=== PATIENT | female | born 1935 | race Caucasian/White ===

== ENCOUNTER 2018-11-26 10:43 | Observation (INO) ==
[2018-11-26 11:50] LABS: Hematocrit 26.7 % (37.0-47.0); Mean Cell Volume 90.8 fl (78-100); Mean Corpuscular Hemoglobin 26.5 pg (27-31); Mean Corpuscular Hgb Conc 29.2 g/dl (32-36); Mean Platelet Volume 11.3 fl (8-12.5); Neutrophil # 7.5 K/mm3 (1.3-6.0); Neutrophil % 83.1 % (42-75.0); Platelet Count 417 K/mm3 (150-450); Red Blood Count 2.94 M/mm3 (4.2-5.4); Red Cell Distribution Width 15.9 % (11.5-14.0); White Blood Count 9.1 K/mm3 (4.0-10.5)
[2018-11-26 11:55] LABS: Hemoglobin 7.8 gm/dL (12.5-16.0)
[2018-11-26 12:09] LABS: ALT 13 U/L (19-67); AST 16 U/L (0-48); Albumin * 3.4 gm/dl (3.4-5.0); Alkaline Phosphatase * 116 U/L (50-170); Anion Gap 16.3 mmol/L (6.8-13.8); BUN/Creatinine Ratio 33.8 (9.0-21.6); Bilirubin, Total 0.5 mg/dL (0.0-1.1); Blood Urea Nitrogen 27 mg/dL (3-23); Ca. Corrected For Albumin 9.3 mg/dL (8.4-10.2); Calcium * 9.1 mg/dL (7.9-10.9); Carbon Dioxide 24.2 mmol/L (24-32.6); Chloride 104 mmol/L (97-106); Glucose * 108 mg/dL (70-110); Potassium 4.5 mmol/L (3.4-4.6); Sodium 140 mmol/L (132-142); Troponin I Less than 0.017 ng/mL (0.00-0.10)
[2018-11-26] MEDS ORDERED: FUROSEMIDE 10 MG/ML VIAL IV ONE (13:36)
--- NOTE | 2018-11-26 13:43 | ERNOTE ---
Dyspnea - Date Date of Service: 11/26/18 - General Presenting Symptoms: shortness of breath Time Seen by Provider: 11/26/18 11:25 Source: patient Exam Limitations: other - Immun/Allergies/Home Medications Immunizations: IMMUNIZATION HX Immunizations Up to Date Yes History of Influenza Vaccine Yes Hx Pneumococcal Vaccination Yes Allergies/Adverse Reactions: Allergies bupropion HCl [From Wellbutrin] Allergy (Verified 11/26/18 11:09) Penicillins Allergy (Verified 11/26/18 11:09) Home Medications: HOME MEDICATIONS Aspirin [Aspirin Enteric Coated] 81 mg PO DAILY 10/06/13 [Last Taken 10/06/13 08:00 81 MG] Atorvastatin Calcium 10 mg PO DAILY 10/06/13 [Last Taken 10/05/13 21:00 10 mg] Cholecalciferol (Vitamin D3) [Vitamin D3] 400 unit PO DAILY 10/06/13 [Last Taken 10/06/13 08:00 400 unit] Citalopram Hydrobromide [Celexa] 20 mg PO DAILY 10/06/13 [Last Taken 10/06/13 08:00 20 mg] Folic Acid 1 mg PO DAILY 10/06/13 [Last Taken 10/06/13 08:00 1 mg] Multivitamin [Multi-Vitamin Daily] 2 each PO DAILY 10/06/13 [Last Taken 10/06/13 08:00 2 each] Potassium Chloride 20 meq PO BID 10/06/13 [Last Taken 10/06/13 08:00 20 mEq] Digoxin [Digitek] 0.125 mcg PO DAILY 01/20/16 [Last Taken Unknown] Furosemide [Lasix] 40 mg PO DAILY 08/20/17 [Last Taken Unknown] Metoprolol Tartrate [Lopressor] 25 mg PO BID 08/20/17 [Last Taken Unknown] Diltiazem HCl [Diltiazem 24Hr ER] 120 mg PO DAILY 11/26/18 [Last Taken Unknown] Tiotropium [place] [Spiriva] 1 cap INHALATION DAILY PRN 11/26/18 [Last Taken Unknown] - History of Present Illness Narrative: Patient presents to the ED with increased SOB and upper back pain. The back pain is now resolved. She is not very happy to be here so it is difficult to get her to answer historical questions. She had upper back pain earlier, nothing now. SOB, unclear onset but worsening. She normally only wears oxygen at night but was in the mid 80s here on [place] so placed on oxygen. No fever. no cough. Mild leg swelling. Has not seen anyone else for this. Severity: moderate Treatment ROLLER SETTER: none Initiating event: Reports: unknown Frequency of episodes: Reports: occassional episodes Modifying Factors - (Improves): Reports: oxygen Modifying Factors (Worsens): Reports: activity Associated Symptoms-Dyspnea: Denies: fever/chills, chest pain/discomfort, cough, wheezing Prior Treatment: Denies: recently seen Review of Systems - Review of Systems Constitutional: Absent: fever Respiratory: Present: shortness of breath Cardiology: Absent: chest pain Gastrointestinal/Abdominal: Absent: abdominal pain Genitourinary: Absent: frequency Musculoskeletal: Present: other - upper back pain earlier, now resolved All Other Systems: All systems neg except as marked Medical History (Updated 11/26/18 @ 13:43 by Jamar Fang MD) A-fib Depression Hypertension Surgical History: Surgical History (Updated 11/26/18 @ 11:16 by Ann Marie Dumont RN) Hx of appendectomy Hx of tonsillectomy Family History: Family History (Updated 11/26/18 @ 11:17 by Ann Marie Dumont RN) Father Myocardial infarction Social History: Preferred Language Palestinian Do you have any roman catholic or Yes cultural preference? Smoking Status Former smoker Have you smoked in the past 12 No months Alcohol Use none Drug Use none No Social History Section defined Physical Exam - Physical Exam General Appearance: Present: alert, other - sitting in bed, on oxygen Head Exam: Present: normal inspection, no evidence of injury Eye Exam: Normal inspection: bilateral, PERRL: bilateral Ears, Nose, Throat: Present: normal ENT inspection Neck: Present: normal inspection Respiratory: Present: no respiratory distress, no accessory muscle use, crackles Cardiovascular/Chest: Present: regular rate, rhythm Gastrointestinal/Abdominal: Present: normal bowel sounds, nontender, soft Back Exam: Absent: CVA tenderness (R), CVA tenderness (L) Extremity Exam: Present: pedal edema Neurological Exam: Present: alert, other - no acute unilateral focal motor or sensory deficits Skin Exam: Present: normal color, warm/dry Progress - Results and Orders Patient's Lab Results:: I have reviewed the patient's lab results. - Vital Signs Patient's Vital Signs:: I have reviewed the patient's vital signs. Vital Signs: Vital Signs 11/26/18 11:10 11/26/18 11:30 11/26/18 11:35 Temperature 36.5 C 37.4 C 36.8 C Pulse Rate 80 77 Respiratory Rate 95 H 20 Blood Pressure 102/69 115/52 O2 Sat by Pulse Oximetry 92 L 94 95 - EKG EKG #1 EKG: NSR EKG read: Interp. by me EKG Comments: A fib rate 81. Non-specific changes, no STEMI noted. - X-Ray X-Ray #1 X-Ray: chest Interpretation: Interp. by me X-ray Comments: I reviewed official radiology report - Progress/Reassessment Chief Complaint: Dyspnea Progress Note-Subjective: 11/26/18 14:13 Patient initially didn't want anything done. Afer family talked toher she agreed to blood transfusion and observation. She wishes to stay here. I discussed the case with Dr Dumont who will admit and saw the patient in the ED. Departure Clinical Impression: Symptomatic anemia, CHF (congestive heart failure), Hypoxia - Departure Disposition: Still a patient Condition: Fair
--- NOTE | 2018-11-26 14:21 | HP ---
Chief Complaint - Chief Complaint Date of Service: 11/26/18 Time of Service: 14:15 Chief Complaint: Shortness of breath History of Present Illness: Urine culture results and blood culture 83-year-old female with a past medical history of atrial fibrillation on Eliquis, depression, hypertension presents with complaints of shortness of breath x1 day. She decided to come to the emergency department and was found to have anemia with hemoglobin of 7.8 and hematocrit 26.7 chest x-ray shows findings compatible with CHF compatible superimposed on COPD. She denies any acute blood loss such as urine no blood in her stools. She will be admitted for symptomatic anemia and will get 2 units of blood. Medical History (Updated 11/26/18 @ 14:21 by Lilliana Zepeda MD) A-fib Depression Hypertension Surgical History: Surgical History (Updated 11/26/18 @ 11:16 by Ann Marie Dumont RN) Hx of appendectomy Hx of tonsillectomy Family History: Family History (Updated 11/26/18 @ 11:17 by Ann Marie Dumont RN) Father Myocardial infarction Social History: Preferred Language Zimbabwean Do you have any mormon or Yes cultural preference? Smoking Status Former smoker Have you smoked in the past 12 No months Alcohol Use none Drug Use none No Social History Section defined Review Of Systems (GEN) - Review of Systems Generalized/Overall Review: Absent: Fever Respiratory: Present: Shortness of Breath Cardiac: Absent: Chest Pain Abdominal: Absent: Abdominal Pain Misc: All systems neg except as marked Immunizations: IMMUNIZATION HX Immunizations Up to Date Yes History of Influenza Vaccine Yes Hx Pneumococcal Vaccination Yes Allergies/Adverse Reactions: Allergies Allergy/AdvReac Type Severity Reaction Status Date / Time bupropion HCl Allergy Verified 11/26/18 11:09 [From Wellbutrin] Penicillins Allergy Verified 11/26/18 11:09 Home Medications: HOME MEDICATIONS Aspirin [Aspirin Enteric Coated] 81 mg PO DAILY 10/06/13 [Last Taken 10/06/13 08:00 81 MG] Atorvastatin Calcium 10 mg PO DAILY 10/06/13 [Last Taken 10/05/13 21:00 10 mg] Cholecalciferol (Vitamin D3) [Vitamin D3] 400 unit PO DAILY 10/06/13 [Last Taken 10/06/13 08:00 400 unit] Citalopram Hydrobromide [Celexa] 20 mg PO DAILY 10/06/13 [Last Taken 10/06/13 08:00 20 mg] Folic Acid 1 mg PO DAILY 10/06/13 [Last Taken 10/06/13 08:00 1 mg] Multivitamin [Multi-Vitamin Daily] 2 each PO DAILY 10/06/13 [Last Taken 10/06/13 08:00 2 each] Potassium Chloride 20 meq PO BID 10/06/13 [Last Taken 10/06/13 08:00 20 mEq] Digoxin [Digitek] 0.125 mcg PO DAILY 01/20/16 [Last Taken Unknown] Furosemide [Lasix] 40 mg PO DAILY 08/20/17 [Last Taken Unknown] Metoprolol Tartrate [Lopressor] 25 mg PO BID 08/20/17 [Last Taken Unknown] Diltiazem HCl [Diltiazem 24Hr ER] 120 mg PO DAILY 11/26/18 [Last Taken Unknown] Tiotropium [place] [Spiriva] 1 cap INHALATION DAILY PRN 11/26/18 [Last Taken Unknown] Exam - Exam Vital Signs: Vital Signs - Last Taken Temp 36.8 C 11/26/18 11:35 Pulse 77 11/26/18 11:30 Resp 20 11/26/18 11:30 BP 115/52 11/26/18 11:30 Pulse Ox 95 11/26/18 11:35 Constitutional: Present: Alert, Cooperative, Well developed, Well nourished, No distress, Elderly ENT Exam: Present: hearing grossly normal Eye Exam: bilateral eye: normal inspection, PERRL Neck: Present: non-tender, supple, trachea midline. Absent: lymphadenopathy (R), lymphadenopathy (L) Back Exam: Present: normal inspection Respiratory: Present: no respiratory distress, no accessory muscle use, crackles - Mild bilateral bases, No wheezing. Absent: rhonchi Cardiovascular/Chest: Present: normal peripheral pulses, no murmur, irregularly irregular Peripheral Pulses: dorsalis-pedis (R): 1+, dorsalis-pedis (L): 1+ Abdomen: Present: Normal bowel sounds, soft, nontender Extremity: Present: pedal edema - 1+ bilateral Skin Exam: Present: normal color, warm/dry Neurologic: Present: alert, normal mood/affect Appearance: Present: appropriate appearance, appropriate insight Eye contact: Present: cooperative, good eye contact Thoughts: Present: normal thought pattern Diagnostic Studies: Abnormal Lab Results 11/26/18 11/26/18 11/26/18 Range/Units 11:35 11:35 11:35 RBC 2.94 L (4.2-5.4) M/mm3 Hgb 7.8 L* D (12.5-16.0) gm/dL Hct 26.7 L (37.0-47.0) % MCH 26.5 L (27-31) pg MCHC 29.2 L (32-36) g/dl RDW 15.9 H (11.5-14.0) % Immature Gran % (Auto) 0.60 H (0.001-0.429) % Immature Gran # (Auto) 0.05 H (0.000-0.0310) K/mm3 Neutrophils % 83.1 H (42-75.0) % Lymphocytes % 7.3 L (20-51) % Neutrophils # 7.5 H (1.3-6.0) K/mm3 Lymphocytes # 0.66 L (1.5-3.5) k/mm3 Anion Gap 16.3 H (6.8-13.8) mmol/L BUN 27 H (3-23) mg/dL BUN/Creatinine Ratio 33.8 H (9.0-21.6) ALT 13 L (19-67) U/L B-Natriuretic Peptide 2610 H (5-550) pg/mL Crossmatch 11/26/18 Range/Units 13:15 RBC (4.2-5.4) M/mm3 Hgb (12.5-16.0) gm/dL Hct (37.0-47.0) % MCH (27-31) pg MCHC (32-36) g/dl RDW (11.5-14.0) % Immature Gran % (Auto) (0.001-0.429) % Immature Gran # (Auto) (0.000-0.0310) K/mm3 Neutrophils % (42-75.0) % Lymphocytes % (20-51) % Neutrophils # (1.3-6.0) K/mm3 Lymphocytes # (1.5-3.5) k/mm3 Anion Gap (6.8-13.8) mmol/L BUN (3-23) mg/dL BUN/Creatinine Ratio (9.0-21.6) ALT (19-67) U/L B-Natriuretic Peptide (5-550) pg/mL Crossmatch See Detail Laboratory Results WBC 9.1 K/mm3 (4.0-10.5) 11/26/18 11:35 RBC 2.94 M/mm3 (4.2-5.4) L 11/26/18 11:35 Hgb 7.8 gm/dL (12.5-16.0) L* D 11/26/18 11:35 Hct 26.7 % (37.0-47.0) L 11/26/18 11:35 MCV 90.8 fl (78-100) 11/26/18 11:35 MCH 26.5 pg (27-31) L 11/26/18 11:35 MCHC 29.2 g/dl (32-36) L 11/26/18 11:35 RDW 15.9 % (11.5-14.0) H 11/26/18 11:35 Plt Count 417 K/mm3 (150-450) 11/26/18 11:35 MPV 11.3 fl (8-12.5) 11/26/18 11:35 Immature Gran % (Auto) 0.60 % (0.001-0.429) H 11/26/18 11:35 Immature Gran # (Auto) 0.05 K/mm3 (0.000-0.0310) H 11/26/18 11:35 83.1 % (42-75.0) H 11/26/18 11:35 7.3 % (20-51) L 11/26/18 11:35 7.8 % (0.0-9) 11/26/18 11:35 1.0 % (0.0-3.0) 11/26/18 11:35 0.2 % (0.0-1.0) 11/26/18 11:35 Nucleated RBC % 0.0 k/mm3 (0-1) 11/26/18 11:35 7.5 K/mm3 (1.3-6.0) H 11/26/18 11:35 0.66 k/mm3 (1.5-3.5) L 11/26/18 11:35 0.7 k/mm3 (0.0-1.0) 11/26/18 11:35 0.1 k/mm3 (0.0-0.7) 11/26/18 11:35 Absolute Basophils 0.0 k/mm3 (0.0-0.1) 11/26/18 11:35 Sodium 140 mmol/L (132-142) 11/26/18 11:35 140 mmol/L (130-142) 11/26/18 11:35 Potassium 4.5 mmol/L (3.4-4.6) 11/26/18 11:35 Chloride 104 mmol/L (97-106) 11/26/18 11:35 Carbon Dioxide 24.2 mmol/L (24-32.6) 11/26/18 11:35 16.3 mmol/L (6.8-13.8) H 11/26/18 11:35 BUN 27 mg/dL (3-23) H 11/26/18 11:35 0.80 mg/dL (0.4-1.4) 11/26/18 11:35 Est GFR (Non-Af Amer) 72 mL/min (60-130) 11/26/18 11:35 33.8 (9.0-21.6) H 11/26/18 11:35 108 mg/dL (70-110) 11/26/18 11:35 1.9 mmol/L (0.4-2.0) 11/26/18 11:35 Calcium 9.1 mg/dL (7.9-10.9) 11/26/18 11:35 Calcium Adj for Albumin 9.3 mg/dL (8.4-10.2) 11/26/18 11:35 0.5 mg/dL (0.0-1.1) 11/26/18 11:35 AST 16 U/L (0-48) 11/26/18 11:35 ALT 13 U/L (19-67) L 11/26/18 11:35 116 U/L (50-170) 11/26/18 11:35 Less than 0.017 ng/mL (0.00-0.10) 11/26/18 11:35 B-Natriuretic Peptide 2610 pg/mL (5-550) H 11/26/18 11:35 7.0 gm/dL (6.2-8.2) 11/26/18 11:35 3.4 gm/dl (3.4-5.0) 11/26/18 11:35 Blood Type A Positive 11/26/18 13:15 Antibody Screen Negative 11/26/18 13:15 Crossmatch See Detail 11/26/18 13:15 Assessment/Plan - Narrative Narrative: Urine culture results and blood culture 83-year-old female with a past medical history of atrial fibrillation on Eliquis, depression, hypertension presents with complaints of shortness of breath x1 day. She decided to come to the emergency department and was found to have anemia with hemoglobin of 7.8 and hematocrit 26.7 chest x-ray shows findings compatible with CHF compatible superimposed on COPD. She denies any acute blood loss such as urine no blood in her stools. She will be admitted for symptomatic anemia and will get 2 units of blood. - Assessment/Plan (1) Symptomatic anemia Assessment: She will receive 2 units of packed red blood cells today. She received 1 dose of 40 milligrams Lasix prior to the first unit of blood. Repeat CBC in the morning. No signs of active bleeding. Problem: Acute (2) Hypoxia Assessment: She uses oxygen at night at home. She is currently on oxygen due to hypoxia now. We will try to titrate her off the oxygen as tolerated. Problem: Acute (3) A-fib Assessment: Rate controlled on anticoagulation continue home meds. Problem: Chronic (4) Congestive heart failure Assessment: Findings consistent with congestive heart failure on chest x-ray. She has received 1 dose of 40 mg Lasix prior to the first transfusion. If symptomatic, we will consider giving her another dose of Lasix after the second transfusion. Problem: Acute
[2018-11-26] MEDS ORDERED: TIOTROPIUM BROMIDE 5 CAP INHALER IH PRN (14:30)
[2018-11-26] MEDS: POTASSIUM CHLORIDE 20 MEQ TABLET.SA PO SCH (16:42)
[2018-11-26] MEDS: METOPROLOL TARTRATE 25 MG TABLET PO SCH (20:10)
[2018-11-26] MEDS ORDERED: ROSUVASTATIN CALCIUM 10 MG TABLET PO SCH (21:00)
[2018-11-26] MEDS: APIXABAN 5 MG TABLET PO SCH (21:11)
[2018-11-26] MEDS ORDERED: ALPRAZolam 0.25 MG TABLET PO ONE (22:14)
[2018-11-27 01:34] LABS: Hematocrit 32.1 % (37.0-47.0); Hemoglobin 9.7 gm/dL (12.5-16.0)
[2018-11-27 06:20] LABS: Hematocrit 32.2 % (37.0-47.0); Hemoglobin 9.7 gm/dL (12.5-16.0); Mean Cell Volume 89.9 fl (78-100); Mean Corpuscular Hemoglobin 27.1 pg (27-31); Mean Corpuscular Hgb Conc 30.1 g/dl (32-36); Mean Platelet Volume 11.3 fl (8-12.5); Neutrophil # 6.1 K/mm3 (1.3-6.0); Neutrophil % 73.6 % (42-75.0); Platelet Count 374 K/mm3 (150-450); Red Blood Count 3.58 M/mm3 (4.2-5.4); Red Cell Distribution Width 15.4 % (11.5-14.0); White Blood Count 8.3 K/mm3 (4.0-10.5)
[2018-11-27 06:28] LABS: Albumin * 3.1 gm/dl (3.4-5.0); Bilirubin, Total 1.2 mg/dL (0.0-1.1); Calcium * 8.6 mg/dL (7.9-10.9); Carbon Dioxide 28.9 mmol/L (24-32.6); Potassium 3.9 mmol/L (3.4-4.6); Total Protein 6.6 gm/dL (6.2-8.2)
[2018-11-27] MEDS ORDERED: ASPIRIN 81 MG TABLET.DR PO SCH (09:00)
[2018-11-27] MEDS ORDERED: DILTIAZEM HCL 120 MG CAP.SR.24H PO SCH (09:00)
[2018-11-27] MEDS ORDERED: MULTIVITAMINS 1 CAP CAPSULE PO SCH (09:00)
[2018-11-27] MEDS ORDERED: FUROSEMIDE 40 MG TABLET PO SCH (09:00)
[2018-11-27] MEDS ORDERED: CITALOPRAM HYDROBROMIDE 20 MG TABLET PO SCH (09:00)
[2018-11-27] MEDS ORDERED: DIGOXIN 0.125 MG TABLET PO SCH (09:00)
[2018-11-27] MEDS ORDERED: CHOLECALCIFEROL 400 UNIT TABLET PO SCH (09:00)
[2018-11-27] MEDS ORDERED: FOLIC ACID 1 MG TABLET PO SCH (09:00)
[2018-11-27] MEDS: APIXABAN 5 MG TABLET PO SCH (09:20)
[2018-11-27] MEDS: POTASSIUM CHLORIDE 20 MEQ TABLET.SA PO SCH (09:21)
[2018-11-27] MEDS: METOPROLOL TARTRATE 25 MG TABLET PO SCH (09:25)
--- NOTE | 2018-11-27 12:33 | DS ---
(1) Symptomatic anemia Problem: Resolved (2) Hypoxia Problem: Resolved (3) A-fib Problem: Chronic (4) Congestive heart failure Problem: Chronic Description of Stay: 83-year-old female with a past medical history of atrial fibrillation on Eliquis, depression, hypertension presents with complaints of shortness of breath x1 day. She decided to come to the emergency department and was found to have anemia with hemoglobin of 7.8 and hematocrit 26.7 chest x-ray shows findings compatible with CHF compatible superimposed on COPD. She denies any acute blood loss such as urine no blood in her stools. She was admitted for symptomatic anemia and is status post 2 units of blood. She had no signs of active bleeding and maintain her H&H at 9.7/32.2. She feels better this morning and is ready to go home. She received 40 mg IV Lasix x1 before her blood transfusion. She denies any history of congestive heart failure but is on Lasix at home daily. Procedures Performed: none Results and Findings: Pending Mircobiology Results 11/26/18 11:51 Blood Blood Culture - Preliminary NO GROWTH 24 HOURS 11/26/18 11:35 Blood Blood Culture - Preliminary NO GROWTH 24 HOURS Lab Pending Results 11/26/18 11:35: WBC 9.1, RBC 2.94 L, Hgb 7.8 L* D, Hct 26.7 L, MCV 90.8, MCH 26.5 L, MCHC 29.2 L, RDW 15.9 H, Plt Count 417, MPV 11.3, Immature Gran % (Auto) 0.60 H, Immature Gran # (Auto) 0.05 H, Neutrophils % 83.1 H, Lymphocytes % 7.3 L, Monocytes % 7.8, Eosinophils % 1.0, Basophils % 0.2, Nucleated RBC % 0.0, Neutrophils # 7.5 H, Lymphocytes # 0.66 L, Monocytes # 0.7, Eosinophils # 0.1, Absolute Basophils 0.0 11/26/18 11:35: Sodium 140, Plasma Sodium 140, Potassium 4.5, Chloride 104, Carbon Dioxide 24.2, Anion Gap 16.3 H, BUN 27 H, Creatinine 0.80, Est GFR (Non- Af Amer) 72, BUN/Creatinine Ratio 33.8 H, Random Glucose 108, Calcium 9.1, Calcium Adj for Albumin 9.3, Total Bilirubin 0.5, AST 16, ALT 13 L, Alkaline Phosphatase 116, Troponin I Less than 0.017, Total Protein 7.0, Albumin 3.4 11/26/18 11:35: Lactic Acid, Venous 1.9 11/26/18 11:35: B-Natriuretic Peptide 2610 H 11/26/18 13:15: Blood Type A Positive, Antibody Screen Negative, Crossmatch See Detail 11/26/18 17:55: Stool Occult Blood Positive H 11/27/18 01:30: Hgb 9.7 L, Hct 32.1 L 11/27/18 06:00: WBC 8.3, RBC 3.58 L, Hgb 9.7 L, Hct 32.2 L, MCV 89.9, MCH 27.1, MCHC 30.1 L, RDW 15.4 H, Plt Count 374, MPV 11.3, Immature Gran % (Auto) 0.40, Immature Gran # (Auto) 0.03, Neutrophils % 73.6, Lymphocytes % 13.4 L, Monocytes % 10.0 H, Eosinophils % 2.2, Basophils % 0.4, Nucleated RBC % 0.0, Neutrophils # 6.1 H, Lymphocytes # 1.11 L, Monocytes # 0.8, Eosinophils # 0.2, Absolute Bas ophils 0.0 11/27/18 06:00: Sodium 142, Plasma Sodium 142, Potassium 3.9, Chloride 105, Carbon Dioxide 28.9, Anion Gap 12.0, BUN 18, Creatinine 0.75, Est GFR (Non-Af Amer) 78, BUN/Creatinine Ratio 24.0 H, Random Glucose 98, Calcium 8.6, Calcium Adj for Albumin 9.0, Total Bilirubin 1.2 H, AST 18, ALT 14 L, Alkaline Phosphatase 113, Total Protein 6.6, Albumin 3.1 L Discharge Location: Home Disposition: Home self-care Condition: Fair Discharge Activity: Activity as tolerated Discharge Diet: Low salt, Low fat/chol Complete Home Medications List: Complete Home Medication List: Aspirin [Aspirin Enteric Coated] 81 mg PO DAILY 10/06/13 Atorvastatin Calcium 10 mg PO DAILY 10/06/13 Cholecalciferol (Vitamin D3) [Vitamin D3] 400 unit PO DAILY 10/06/13 Citalopram Hydrobromide [Celexa] 20 mg PO DAILY 10/06/13 Folic Acid 1 mg PO DAILY 10/06/13 Multivitamin [Multi-Vitamin Daily] 1 each PO BID 10/06/13 Potassium Chloride 20 meq PO DAILY 10/06/13 Digoxin [Digitek] 0.125 mcg PO DAILY 01/20/16 Furosemide [Lasix] 40 mg PO DAILY 08/20/17 Metoprolol Tartrate [Lopressor] 25 mg PO BID 08/20/17 Apixaban [Eliquis] 5 mg PO BID 11/26/18 Diltiazem HCl [Diltiazem 24Hr ER] 120 mg PO HS 11/26/18 Tiotropium [place] [Spiriva] 1 cap INHALATION DAILY PRN 11/26/18
[2018-11-27 14:11] VITALS: BP 124/70
== END 2018-11-27 14:30 | disposition home or self-care (01) ==
LOC: ER 10:43 → MS 10:43
PROVIDERS: ADMIT Internal Medicine; ATTEND Internal Medicine
DX: I50.9 Heart failure, unspecified; R09.02 Hypoxemia; D64.89 Other specified anemias; I48.2 Chronic atrial fibrillation
CPT/HCPCS: 36415; 36430; 71020; 71046; 80053; 82272; 83519; 83605; 83880; 84484; 85014; 85018; 85025; 86850; 87040; 93005; 96374; 99285; G0378; P9016

== ENCOUNTER 2019-01-31 17:19 | Observation (INO) ==
[2019-01-31 18:16] LABS: Hematocrit 28.2 % (37.0-47.0); Mean Cell Volume 83.9 fl (78-100); Mean Corpuscular Hemoglobin 23.5 pg (27-31); Mean Platelet Volume 11.8 fl (8-12.5); Neutrophil # 7.6 K/mm3 (1.3-6.0); Neutrophil % 85.6 % (42-75.0); Platelet Count 451 K/mm3 (150-450); Red Blood Count 3.36 M/mm3 (4.2-5.4); Red Cell Distribution Width 17.4 % (11.5-14.0); White Blood Count 8.9 K/mm3 (4.0-10.5)
[2019-01-31 18:18] LABS: Hemoglobin 7.9 gm/dL (12.5-16.0)
[2019-01-31 18:25] LABS: Albumin * 3.4 gm/dl (3.4-5.0); Anion Gap 14.7 mmol/L (6.8-13.8); BUN/Creatinine Ratio 22.2 (9.0-21.6); Bilirubin, Total 0.6 mg/dL (0.0-1.1); Ca. Corrected For Albumin 9.2 mg/dL (8.4-10.2); Carbon Dioxide 26.9 mmol/L (24-32.6); Potassium 4.6 mmol/L (3.4-4.6); Total Protein 7.2 gm/dL (6.2-8.2)
--- NOTE | 2019-01-31 19:15 | ERNOTE ---
Medical Problem HPI - Narrative Date of Service: 01/31/19 - General Chief Complaint: General Assessment Time Seen by Provider: 01/31/19 17:43 Source: patient Exam Limitations: no limitations - Immun/Allergies/Home Medications Immunizations: IMMUNIZATION HX Immunizations Up to Date Yes History of Influenza Vaccine Yes Hx Pneumococcal Vaccination Yes Allergies/Adverse Reactions: Allergies bupropion HCl [From Wellbutrin] Allergy (Verified 01/31/19 17:34) Penicillins Allergy (Verified 01/31/19 17:34) Home Medications: HOME MEDICATIONS Aspirin [Aspirin Enteric Coated] 81 mg PO DAILY 10/06/13 [Last Taken 10/06/13 08:00 81 MG] Atorvastatin Calcium 10 mg PO DAILY 10/06/13 [Last Taken 10/05/13 21:00 10 mg] Cholecalciferol (Vitamin D3) [Vitamin D3] 400 unit PO DAILY 10/06/13 [Last Taken 10/06/13 08:00 400 unit] Citalopram Hydrobromide [Celexa] 20 mg PO DAILY 10/06/13 [Last Taken 10/06/13 08:00 20 mg] Folic Acid 1 mg PO DAILY 10/06/13 [Last Taken 10/06/13 08:00 1 mg] Multivitamin [Multi-Vitamin Daily] 1 each PO BID 10/06/13 [Last Taken 10/06/13 08:00 2 each] Potassium Chloride 20 meq PO DAILY 10/06/13 [Last Taken 10/06/13 08:00 20 mEq] Digoxin [Digitek] 0.125 mcg PO DAILY 01/20/16 [Last Taken Unknown] Furosemide [Lasix] 40 mg PO DAILY 08/20/17 [Last Taken Unknown] Metoprolol Tartrate [Lopressor] 25 mg PO BID 08/20/17 [Last Taken Unknown] Apixaban [Eliquis] 5 mg PO BID 11/26/18 [Last Taken Unknown] Diltiazem HCl [Diltiazem 24Hr ER] 120 mg PO HS 11/26/18 [Last Taken Unknown] Tiotropium [place] [Spiriva] 1 cap INHALATION DAILY PRN 11/26/18 [Last Taken Unknown] - History of Present History Narrative: Patient presents to the ED feeling like she might need blood. She has a history of anemia and has had blood transfusions for this before. I saw her in november and she was admitted, received PRBC at that time. She had f/u at [facility] and had blood count 9.5 in December. Now she has gradually began to feel more SOB and fatigued just like when she needed blood before. She has been putting off getting the UGI and lower GI and really does not want to be here at all. She felt this way when I saw her last. She nedies CP or abdominal pain. has not had any blood in her stool, has not vomited. She is on blood thinners and has been on them for a long time. Timing: constant, getting worse Severity: moderate Modifying Factors - (Improves): Present: rest Modifying Factors - (Worsens): Present: other - exertion Review of Systems - Review of Systems Constitutional: Absent: fever ENT: Absent: sore throat Respiratory: Present: shortness of breath Cardiology: Absent: chest pain Gastrointestinal/Abdominal: Absent: abdominal pain Genitourinary: Absent: dysuria All Other Systems: All systems neg except as marked Medical History (Updated 11/27/18 @ 12:33 by Lilliana Zepeda MD) A-fib Congestive heart failure (CHF) Depression Hypertension Surgical History: Surgical History (Updated 11/26/18 @ 11:16 by Ann Marie Dumont RN) Hx of appendectomy Hx of tonsillectomy Family History: Family History (Updated 11/26/18 @ 11:17 by Ann Marie Dumont RN) Father Myocardial infarction Social History: (Last Reviewed 01/31/19 @ 19:14 by Jamar Fang MD) Tobacco: Smoking Status: Former smoker Alcohol: alcohol intake: never Substance Use: substance use type: does not use Physical Exam - Physical Exam General Appearance: Present: alert, no apparent distress Head Exam: Present: normal inspection, no evidence of injury Eye Exam: Normal inspection: bilateral, PERRL: bilateral Ears, Nose, Throat: Present: normal ENT inspection Neck: Present: normal inspection Respiratory: Present: no respiratory distress, normal breath sounds, no accessory muscle use, lungs clear Cardiovascular/Chest: Present: normal peripheral pulses. Absent: tachycardia Gastrointestinal/Abdominal: Present: normal bowel sounds, nontender, soft Back Exam: Absent: CVA tenderness (R), CVA tenderness (L) Extremity Exam: Present: non-tender Neurological Exam: Present: alert, no motor/sensory deficits Skin Exam: Present: normal color, warm/dry, pallor Progress - Results and Orders Patient's Lab Results:: I have reviewed the patient's lab results. - Vital Signs Patient's Vital Signs:: I have reviewed the patient's vital signs. Vital Signs: Vital Signs 01/31/19 17:31 Temperature 36.9 C Pulse Rate 84 Respiratory Rate 14 Blood Pressure 97/43 O2 Sat by Pulse Oximetry 92 L - Progress/Reassessment Chief Complaint: General Assessment Progress Note-Subjective: 01/31/19 19:17 The patient is not agreeable to extensive testing. This is consistent with how she was last time I saw her. She has been reluctant to have the recommended GI testing because it has been assumed that she has been loosing the blood into her GI tract. She is not agreeable to transfer to [facility] but will stay here for transfusions again. I ordered 1st unit PRBCs for her symptomatic anemia. I spoke with Dr Hernandez who will admit her. Her BP is currently 122/62 01/31/19 19:21 Departure Clinical Impression: Symptomatic anemia - Departure Disposition: Still a patient Condition: Stable
[2019-01-31] MEDS ORDERED: PANTOPRAZOLE SODIUM 20 MG TABLET.DR PO SCH (22:55)
[2019-01-31] MEDS: METOPROLOL TARTRATE 25 MG TABLET PO SCH (23:12)
[2019-01-31] MEDS: APIXABAN 5 MG TABLET PO SCH (23:12)
[2019-01-31] MEDS ORDERED: DILTIAZEM HCL 120 MG CAP.SR.24H PO SCH (23:15)
[2019-02-01] MEDS: APIXABAN 5 MG TABLET PO SCH (08:20)
[2019-02-01] MEDS: METOPROLOL TARTRATE 25 MG TABLET PO SCH (08:20)
[2019-02-01 09:12] LABS: Hematocrit 28.3 % (37.0-47.0); Hemoglobin 8.3 gm/dL (12.5-16.0); Mean Cell Volume 83.2 fl (78-100); Mean Corpuscular Hemoglobin 24.4 pg (27-31); Mean Corpuscular Hgb Conc 29.3 g/dl (32-36); Mean Platelet Volume 10.9 fl (8-12.5); Platelet Count 403 K/mm3 (150-450); Red Cell Distribution Width 17.4 % (11.5-14.0); White Blood Count 8.4 K/mm3 (4.0-10.5)
[2019-02-01 16:19] LABS: Hematocrit 30.6 % (37.0-47.0); Hemoglobin 9.2 gm/dL (12.5-16.0)
--- NOTE | 2019-02-01 17:16 | HPDIS ---
Chief Complaint - Chief Complaint Date of Service: 02/01/19 Time of Service: 17:16 Chief Complaint: SOB, dizzy History of Present Illness: 84-year-old female presented to the ER with shortness of breath and dizziness similar to how she felt in November of this year. At that time she was found to have a low hemoglobin which is what prompted her to go to the ER. With this visit her initial hemoglobin was found to be 7.9 and she was transfused a unit and placed under observation on the floor. Patient unwilling to undergo further testing as she states that she would not want any kind of surgery or invasive procedure to fix whatever problems causing her to have a drop in hemoglobin. Repeat hemoglobin this morning was 8.3. She was transfused another unit which improved to 9.2. Her vital signs been stable and otherwise she is fe lt well. Her care comes from the [facility] which she wants to discuss any further testing including a colonoscopy or EGD with them prior to doing this. Patient was here for only a short stay and felt much better after being transfused 2 units. The rest of her lab work is fairly benign. Medical History (Updated 02/01/19 @ 17:16 by Colton Hernandez DO) COPD (chronic obstructive pulmonary disease) A-fib Congestive heart failure (CHF) Depression Hypertension Surgical History: Surgical History (Updated 02/01/19 @ 17:16 by Colton Hernandez DO) Hx of appendectomy Hx of tonsillectomy Family History: Family History (Updated 11/26/18 @ 11:17 by Ann Marie Dumont RN) Father Myocardial infarction Social History: (Last Updated 01/31/19 @ 21:55 by Kassie Jansen RN) Social History: adopted: No foster care: No intermediate: No lives independently: Yes lives independently comment: [facility] current occupational status: retired Tobacco: Smoking Status: Former smoker Alcohol: alcohol intake: never Substance Use: substance use type: does not use Review Of Systems (GEN) - Review of Systems Generalized/Overall Review: Present: Weakness. Absent: Chills, Fever EENTM: Present: No Symptoms Reported Respiratory: Present: Shortness of Breath. Absent: Cough, Wheezing Cardiac: Present: No Symptoms Reported Abdominal: Present: No Symptoms Reported Genitourinary: Present: No Symptoms Reported Musculoskeletal: Present: No Symptoms Reported Neurological: Present: No Symptoms Reported Skin: Present: No Symptoms Reported Endocrine: Present: No Symptoms Reported Immunizations: IMMUNIZATION HX Immunizations Up to Date Yes History of Influenza Vaccine Yes Hx Pneumococcal Vaccination Yes Allergies/Adverse Reactions: Allergies Allergy/AdvReac Type Severity Reaction Status Date / Time bupropion HCl Allergy Verified 01/31/19 17:34 [From Wellbutrin] Penicillins Allergy Verified 01/31/19 17:34 Home Medications: HOME MEDICATIONS Aspirin [Aspirin Enteric Coated] 81 mg PO DAILY 10/06/13 [Last Taken 10/06/13 08:00 81 MG] Atorvastatin Calcium 10 mg PO HS 10/06/13 [Last Taken 10/05/13 21:00 10 mg] Cholecalciferol (Vitamin D3) [Vitamin D3] 2,000 unit PO DAILY 10/06/13 [Last Taken 10/06/13 08:00 400 unit] Citalopram Hydrobromide [Celexa] 20 mg PO DAILY 10/06/13 [Last Taken 10/06/13 08:00 20 mg] Folic Acid 1 mg PO DAILY 10/06/13 [Last Taken 10/06/13 08:00 1 mg] Multivitamin [Multi-Vitamin Daily] 1 each PO BID 10/06/13 [Last Taken 10/06/13 08:00 2 each] Potassium Chloride 20 meq PO DAILY 10/06/13 [Last Taken 10/06/13 08:00 20 mEq] Digoxin [Digitek] 0.125 mg PO DAILY 01/20/16 [Last Taken Unknown] Furosemide [Lasix] 20 mg PO DAILY 08/20/17 [Last Taken Unknown] Metoprolol Tartrate [Lopressor] 25 mg PO BID 08/20/17 [Last Taken Unknown] Apixaban [Eliquis] 5 mg PO BID 11/26/18 [Last Taken Unknown] Diltiazem HCl [Diltiazem 24Hr ER] 120 mg PO HS 11/26/18 [Last Taken Unknown] Calcium Carbonate/Vitamin D3 [Calcium 500-Vit D3 200 Tablet] 1 ea PO BID 01/31/19 [Last Taken Unknown] Omeprazole [Prilosec] 20 mg PO HS 01/31/19 [Last Taken Unknown] Exam - Exam Vital Signs: Vital Signs - Last Taken Temp 37.2 C 02/01/19 14:23 Pulse 64 02/01/19 14:23 Resp 16 02/01/19 14:23 BP 114/51 02/01/19 14:23 Pulse Ox 96 02/01/19 14:23 Constitutional: Present: Alert, Oriented x3, Cooperative, Elderly ENT Exam: Present: hearing grossly normal. Absent: nasal congestion Eye Exam: bilateral eye: normal inspection Neck: Present: non-tender, supple Respiratory: Present: lungs clear, decreased breath sounds Cardiovascular/Chest: Present: normal peripheral pulses, systolic murmur - 2/6 systolic, irregularly irregular. Absent: tachycardia Abdomen: Present: Normal bowel sounds, soft /Rectal: Present: Exam deferred Skin Exam: Present: warm/dry, pallor Neurologic: Present: alert, normal mood/affect, oriented x 3, dizzy/light- headedness Appearance: Present: appropriate appearance, appropriate insight Eye contact: Present: cooperative, good eye contact Thoughts: Present: normal thought pattern, normal mood /affect Diagnostic Studies: Abnormal Lab Results 01/31/19 01/31/19 01/31/19 Range/Units 18:07 18:07 18:07 RBC 3.36 L (4.2-5.4) M/mm3 Hgb 7.9 L* (12.5-16.0) gm/dL Hct 28.2 L (37.0-47.0) % MCH 23.5 L (27-31) pg MCHC 28.0 L (32-36) g/dl RDW 17.4 H (11.5-14.0) % Plt Count 451 H (150-450) K/mm3 Immature Gran # (Auto) 0.04 H (0.000-0.0310) K/mm3 Neutrophils % 85.6 H (42-75.0) % Lymphocytes % 6.3 L (20-51) % Neutrophils # 7.6 H (1.3-6.0) K/mm3 Lymphocytes # 0.56 L (1.5-3.5) k/mm3 Anion Gap 14.7 H (6.8-13.8) mmol/L BUN/Creatinine Ratio 22.2 H (9.0-21.6) ALT 3 L (19-67) U/L Crossmatch See Detail 02/01/19 02/01/19 Range/Units 08:59 16:15 RBC 3.40 L (4.2-5.4) M/mm3 Hgb 8.3 L 9.2 L (12.5-16.0) gm/dL Hct 28.3 L 30.6 L (37.0-47.0) % MCH 24.4 L (27-31) pg MCHC 29.3 L (32-36) g/dl RDW 17.4 H (11.5-14.0) % Plt Count (150-450) K/mm3 Immature Gran # (Auto) (0.000-0.0310) K/mm3 Neutrophils % (42-75.0) % Lymphocytes % (20-51) % Neutrophils # (1.3-6.0) K/mm3 Lymphocytes # (1.5-3.5) k/mm3 Anion Gap (6.8-13.8) mmol/L BUN/Creatinine Ratio (9.0-21.6) ALT (19-67) U/L Crossmatch Laboratory Results WBC 8.4 K/mm3 (4.0-10.5) 02/01/19 08:59 RBC 3.40 M/mm3 (4.2-5.4) L 02/01/19 08:59 Hgb 9.2 gm/dL (12.5-16.0) L 02/01/19 16:15 Hct 30.6 % (37.0-47.0) L 02/01/19 16:15 MCV 83.2 fl (78-100) 02/01/19 08:59 MCH 24.4 pg (27-31) L 02/01/19 08:59 MCHC 29.3 g/dl (32-36) L 02/01/19 08:59 RDW 17.4 % (11.5-14.0) H 02/01/19 08:59 Plt Count 403 K/mm3 (150-450) 02/01/19 08:59 MPV 10.9 fl (8-12.5) 02/01/19 08:59 Immature Gran % (Auto) 0.40 % (0.001-0.429) 01/31/19 18:07 Immature Gran # (Auto) 0.04 K/mm3 (0.000-0.0310) H 01/31/19 18:07 85.6 % (42-75.0) H 01/31/19 18:07 6.3 % (20-51) L 01/31/19 18:07 6.5 % (0.0-9) 01/31/19 18:07 1.0 % (0.0-3.0) 01/31/19 18:07 0.2 % (0.0-1.0) 01/31/19 18:07 Nucleated RBC % 0.0 k/mm3 (0-1) 01/31/19 18:07 7.6 K/mm3 (1.3-6.0) H 01/31/19 18:07 0.56 k/mm3 (1.5-3.5) L 01/31/19 18:07 0.6 k/mm3 (0.0-1.0) 01/31/19 18:07 0.1 k/mm3 (0.0-0.7) 01/31/19 18:07 Absolute Basophils 0.0 k/mm3 (0.0-0.1) 01/31/19 18:07 Sodium 141 mmol/L (132-142) 01/31/19 18:07 141 mmol/L (130-142) 01/31/19 18:07 Potassium 4.6 mmol/L (3.4-4.6) 01/31/19 18:07 Chloride 104 mmol/L (97-106) 01/31/19 18:07 Carbon Dioxide 26.9 mmol/L (24-32.6) 01/31/19 18:07 14.7 mmol/L (6.8-13.8) H 01/31/19 18:07 BUN 20 mg/dL (3-23) 01/31/19 18:07 0.90 mg/dL (0.4-1.4) 01/31/19 18:07 Est GFR (Non-Af Amer) 63 mL/min (60-130) 01/31/19 18:07 22.2 (9.0-21.6) H 01/31/19 18:07 109 mg/dL (70-110) 01/31/19 18:07 Calcium 9.0 mg/dL (7.9-10.9) 01/31/19 18:07 Calcium Adj for Albumin 9.2 mg/dL (8.4-10.2) 01/31/19 18:07 0.6 mg/dL (0.0-1.1) 01/31/19 18:07 AST 11 U/L (0-48) 01/31/19 18:07 ALT 3 U/L (19-67) L 01/31/19 18:07 113 U/L (50-170) 01/31/19 18:07 7.2 gm/dL (6.2-8.2) 01/31/19 18:07 3.4 gm/dl (3.4-5.0) 01/31/19 18:07 Blood Type A Positive 01/31/19 18:07 Antibody Screen Negative 01/31/19 18:07 Crossmatch See Detail 01/31/19 18:07 Assessment/Plan - Narrative Narrative: Patient was admitted under observations for somatic anemia and transfused 2 units today. Following completion of the second unit repeat hemoglobin showed her to be at 9.3 up from 7.9. Patient was feeling better and ready to go home. Patient agrees to follow-up with me in 1 to 2 weeks in order to discuss other options as far as further work-up and possible procedures that may be needed including EGD or colonoscopy. She is discharged home in stable condition, no changes to her home medication list. Her A. fib was at a regular rate, discussed possible cessation of her Eliquis as this may be attributing to her blood loss but will discuss it again at her follow-up appointment which she wants to do at that time. Her vital signs are stable throughout her stay - Assessment/Plan (1) A-fib Problem: Chronic (2) Symptomatic anemia Problem: Acute (1) A-fib Problem: Chronic (2) Symptomatic anemia Problem: Acute Description of Stay: 84-year-old female presented to the ER with shortness of breath and dizziness similar to how she felt in November of this year. At that time she was found to have a low hemoglobin which is what prompted her to go to the ER. With this visit her initial hemoglobin was found to be 7.9 and she was transfused a unit and placed under observation on the floor. Patient unwilling to undergo further testing as she states that she would not want any kind of surgery or invasive procedure to fix whatever problems causing her to have a drop in hemoglobin. Repeat hemoglobin this morning was 8.3. She was transfused another unit which improved to 9.2. Her vital signs been stable and otherwise she is felt well. Her care comes from the [place] which she wants to discuss any further testing including a colonoscopy or EGD with them prior to doing this. Patient was here for only a short stay and felt much better after being transfused 2 units. The rest of her lab work is fairly benign. Patient was discharged home in stable condition and agrees to follow-up with me in 1 to 2 weeks for discussion of continued blood loss anemia to see if other testing is warranted. She was agreed with the treatment plan Procedures Performed: none Results and Findings: Lab Pending Results 01/31/19 18:07: WBC 8.9, RBC 3.36 L, Hgb 7.9 L*, Hct 28.2 L, MCV 83.9, MCH 23.5 L, MCHC 28.0 L, RDW 17.4 H, Plt Count 451 H, MPV 11.8, Immature Gran % (Auto) 0.40, Immature Gran # (Auto) 0.04 H, Neutrophils % 85.6 H, Lymphocytes % 6.3 L, Monocytes % 6.5, Eosinophils % 1.0, Basophils % 0.2, Nucleated RBC % 0.0, Neutr ophils # 7.6 H, Lymphocytes # 0.56 L, Monocytes # 0.6, Eosinophils # 0.1, Absolute Basophils 0.0 01/31/19 18:07: Sodium 141, Plasma Sodium 141, Potassium 4.6, Chloride 104, Ca rbon Dioxide 26.9, Anion Gap 14.7 H, BUN 20, Creatinine 0.90, Est GFR (Non-Af Amer) 63, BUN/Creatinine Ratio 22.2 H, Random Glucose 109, Calcium 9.0, Calcium Adj for Albumin 9.2, Total Bilirubin 0.6, AST 11, ALT 3 L, Alkaline Phosphatase 113, Total Protein 7.2, Albumin 3.4 01/31/19 18:07: Blood Type A Positive, Antibody Screen Negative, Crossmatch See Detail 02/01/19 08:59: WBC 8.4, RBC 3.40 L, Hgb 8.3 L, Hct 28.3 L, MCV 83.2, MCH 24.4 L, MCHC 29.3 L, RDW 17.4 H, Plt Count 403, MPV 10.9 02/01/19 16:15: Hgb 9.2 L, Hct 30.6 L Discharge Location: Home Disposition: Home self-care Condition: Stable Discharge Activity: Activity as tolerated Discharge Diet: General/regular food Referrals: Colton Hernandez DO [Staff Physician] - Two Weeks Additional Patient Instructions (free text): -Please make TCM appointment unless intermediate discharge, or if following up with outside provider. Thank you! Ann Marie @ [phone] or Sana at [phone]. Complete Home Medications List: Complete Home Medication List: Aspirin [Aspirin Enteric Coated] 81 mg PO DAILY 10/06/13 Atorvastatin Calcium 10 mg PO HS 10/06/13 Cholecalciferol (Vitamin D3) [Vitamin D3] 2,000 unit PO DAILY 10/06/13 Citalopram Hydrobromide [Celexa] 20 mg PO DAILY 10/06/13 Folic Acid 1 mg PO DAILY 10/06/13 Multivitamin [Multi-Vitamin Daily] 1 each PO BID 10/06/13 Potassium Chloride 20 meq PO DAILY 10/06/13 Digoxin [Digitek] 0.125 mg PO DAILY 01/20/16 Furosemide [Lasix] 20 mg PO DAILY 08/20/17 Metoprolol Tartrate [Lopressor] 25 mg PO BID 08/20/17 Apixaban [Eliquis] 5 mg PO BID 11/26/18 Diltiazem HCl [Diltiazem 24Hr ER] 120 mg PO HS 11/26/18 Calcium Carbonate/Vitamin D3 [Calcium 500-Vit D3 200 Tablet] 1 ea PO BID 01/31/19 Omeprazole [Prilosec] 20 mg PO HS 01/31/19
[2019-02-01 20:22] VITALS: BP 118/68
== END 2019-02-01 19:30 | disposition home or self-care (01) ==
LOC: ER 17:19 → MS 17:19
PROVIDERS: ADMIT Family Medicine; ATTEND Family Medicine
CPT/HCPCS: 36415; 36430; 80053; 85014; 85018; 85025; 85027; 86850; 99285; G0378; P9016

== ENCOUNTER 2019-03-27 10:59 | Inpatient (IN) ==
--- NOTE | 2019-03-27 11:31 | ERNOTE ---
Dyspnea - Date Date of Service: 03/27/19 - General Presenting Symptoms: shortness of breath Time Seen by Provider: 03/27/19 11:21 Source: patient, family, RN notes reviewed, old records Exam Limitations: no limitations - Immun/Allergies/Home Medications Immunizations: IMMUNIZATION HX Immunizations Up to Date Yes History of Influenza Vaccine Yes Hx Pneumococcal Vaccination Yes Allergies/Adverse Reactions: Allergies bupropion HCl [From Wellbutrin] Allergy (Verified 03/27/19 11:08) Penicillins Allergy (Verified 03/27/19 11:08) Home Medications: HOME MEDICATIONS Aspirin [Aspirin Enteric Coated] 81 mg PO DAILY 10/06/13 [Last Taken 10/06/13 08:00 81 MG] Atorvastatin Calcium 10 mg PO HS 10/06/13 [Last Taken 10/05/13 21:00 10 mg] Cholecalciferol (Vitamin D3) [Vitamin D3] 2,000 unit PO DAILY 10/06/13 [Last Taken 10/06/13 08:00 400 unit] Citalopram Hydrobromide [Celexa] 20 mg PO DAILY 10/06/13 [Last Taken 10/06/13 08:00 20 mg] Folic Acid 1 mg PO DAILY 10/06/13 [Last Taken 10/06/13 08:00 1 mg] Multivitamin [Multi-Vitamin Daily] 1 ea PO BID 10/06/13 [Last Taken 10/06/13 08:00 2 each] Potassium Chloride 20 meq PO DAILY 10/06/13 [Last Taken 10/06/13 08:00 20 mEq] Digoxin [Digitek] 0.125 mg PO DAILY 01/20/16 [Last Taken Unknown] Furosemide [Lasix] 20 mg PO DAILY 08/20/17 [Last Taken Unknown] Metoprolol Tartrate [Lopressor] 25 mg PO BID 08/20/17 [Last Taken Unknown] Apixaban [Eliquis] 5 mg PO BID 11/26/18 [Last Taken Unknown] Diltiazem HCl [Diltiazem 24Hr ER] 120 mg PO HS 11/26/18 [Last Taken Unknown] Calcium Carbonate/Vitamin D3 [Calcium 500-Vit D3 200 Tablet] 1 ea PO BID 01/31/19 [Last Taken Unknown] Omeprazole [Prilosec] 20 mg PO HS 01/31/19 [Last Taken Unknown] - History of Present Illness Narrative: Nicole is a 84 year old female brought to the ED by a family member for shortness of breath. She is chronically anemic and felt that this might be causing her dyspnea. Her PCP ordered a CBC this morning. Her hemoglobin was stable at 8.3 so she was sent here for further evaluation. She denies any cough or chest pain. Treatment [employer]: by patient, oxygen Initiating event: Reports: unknown Modifying Factors - (Improves): Reports: oxygen, rest Modifying Factors (Worsens): Reports: activity Associated Symptoms-Dyspnea: Denies: fever/chills, chest pain/discomfort, cough, wheezing Prior Treatment: Reports: recently seen Review of Systems - Review of Systems Constitutional: Present: fatigue. Absent: fever, chills EYE: Present: no symptoms reported ENT: Absent: nose congestion, sore throat Respiratory: Present: shortness of breath. Absent: cough Cardiology: Present: edema. Absent: chest pain, claudication Gastrointestinal/Abdominal: Absent: vomiting, diarrhea Genitourinary: Absent: frequency, dysuria, decreased urinary output Musculoskeletal: Present: no symptoms reported Skin: Absent: rash, lesions Neurological: Present: dizziness/light-headedness. Absent: headache Endocrine: Present: no symptoms reported Hematologic/Lymphatic: Present: easy bruising, easy bleeding Psych: Present: no symptoms reported Medical History (Updated 03/27/19 @ 11:07 by Delia Collins RN) Anemia A-fib COPD (chronic obstructive pulmonary disease) Congestive heart failure (CHF) Depression Hypertension Surgical History: Surgical History (Updated 02/01/19 @ 17:16 by Colton Hernandez DO) Hx of appendectomy Hx of tonsillectomy Family History: Family History (Updated 11/26/18 @ 11:17 by Ann Marie Dumont RN) Father Myocardial infarction Social History: (Last Reviewed 03/27/19 @ 12:58 by Nan Fall NP) Social History: adopted: No foster care: No residential: No lives independently: Yes lives independently comment: [facility] current occupational status: retired Tobacco: Smoking Status: Former smoker Alcohol: alcohol intake: never Substance Use: substance use type: does not use Physical Exam - Physical Exam General Appearance: Present: wd/wn, alert, mild distress Head Exam: Present: normal inspection Eye Exam: Normal inspection: bilateral Neck: Present: normal inspection, nontender, supple Respiratory: Present: accessory muscle use - dyspneic at rest, expiration (prolonged), crackles - bibasilar Cardiovascular/Chest: Present: bradycardia, systolic murmur Gastrointestinal/Abdominal: Present: nontender, nondistended, soft Extremity Exam: Present: non-tender, normal range of motion, pedal edema Neurological Exam: Present: alert, oriented, normal mood/affect, no motor/sensory deficits Skin Exam: Present: normal color, warm/dry Progress - Results and Orders Patient's Lab Results:: I have reviewed the patient's lab results. - Vital Signs Patient's Vital Signs:: I have reviewed the patient's vital signs. Vital Signs: Vital Signs 03/27/19 10:59 Temperature 36.4 C Pulse Rate 65 Respiratory Rate 28 H Blood Pressure 133/67 O2 Sat by Pulse Oximetry 93 - EKG EKG #1 EKG: atrial fibrillation EKG read: Reviewed by me - X-Ray X-Ray #1 X-Ray: chest Interpretation: Reviewed by me X-ray Comments: Chest PA Lateral * Hypoinflated lung volumes. Bibasilar opacities noted with partial obscuration of the hemidiaphragms. Increased vascular markings and peripheral linear lung markings noted. No definable pneumothorax. Trace bilateral pleural fluid suggested. Mild enlargement of the cardiac silhouette noted. Mild tortuosity of the thoracic aorta noted, with overlying atherosclerotic vascular calcifications. Overall stable. Trachea is in normal position. Bones show degenerative changes of the spine. IMPRESSION: 1. Hypoventilatory changes, with bibasilar opacities suggestive of either atelectasis versus multifocal pneumonia. 2. Pulmonary vascular congestion/interstitial edema. Trace bilateral pleural fluid. Mild cardiomegaly, stable. Consider congestive heart failure versus volume overload. 3. Additional comments are as above. Electronically signed by Marisol Mendez M.D.. - Progress/Reassessment Chief Complaint: Dyspnea Progress:: Unchanged Plan - Plan Plan: The patient is in chronic Afib. Her rate is mostly in the 60's but she has frequent pauses and tisha's into the 40's. Her CHF is also somewhat worse than her baseline, with a BNP of 3500 and interstitial edema on her chest xray. Dr. Hernandez was contacted and the patient will be admitted to observation status. Departure Clinical Impression: Symptomatic bradycardia Congestive heart failure Qualifiers: Heart failure type: unspecified Heart failure chronicity: acute on chronic Qualified Code(s): I50.9 - Heart failure, unspecified - Departure Disposition: Still a patient Condition: Fair Referrals: Cotlon Hernandez DO [Primary Care Provider] -
[2019-03-27 12:07] LABS: Albumin * 3.5 gm/dl (3.4-5.0); Anion Gap 12.9 mmol/L (6.8-13.8); BUN/Creatinine Ratio 17.3 (9.0-21.6); Bilirubin, Total 0.4 mg/dL (0.0-1.1); Ca. Corrected For Albumin 9.1 mg/dL (8.4-10.2); Carbon Dioxide 24.8 mmol/L (24-32.6); Digoxin 1.7 ng/mL (0.5-2.0); Potassium 4.7 mmol/L (3.4-4.6); Total Protein 6.7 gm/dL (6.2-8.2); Troponin I 0.021 ng/mL (0.00-0.10)
[2019-03-27] MEDS ORDERED: FUROSEMIDE 10 MG/ML VIAL IV ONE (13:16)
--- NOTE | 2019-03-27 15:14 | HP ---
Chief Complaint - Chief Complaint Date of Service: 03/27/19 Time of Service: 15:14 Chief Complaint: Shortness of breath History of Present Illness: 84-year-old female with history of A. fib, chronic anemia, CHF, COPD presented to the hospital with worsening shortness of breath is been ongoing for the last week to 10 days. Patient has a history of this happening to her from time to time especially when her hemoglobin drops. She has had to come in twice to get transfusions to bring her H&H up. Initially this is what was thought was going on but her H&H is stable compared to previous draws. Further work-up in the ER showed her to have an elevated BNP past her baseline as well as vascular congestion on chest x-ray. She had more swelling in her lower extremities as well as increased requirement of oxygen use during the day which she normally only wears at night. She was also found to have a slightly lower heart rate and normal with her rate dropping into the 40s per ER provider. Since being on the floor her vital signs been stable and her heart rates been in the 60s and 70s. Lab work showed her to have a normal Tarsha panel and a normal dig level. Patient was placed on the floor under observation for likely CHF exacerbation. Medical History (Updated 03/27/19 @ 15:14 by Colton Hernandez DO) Congestive heart failure (CHF) A-fib Anemia COPD (chronic obstructive pulmonary disease) Depression Hypertension Surgical History: Surgical History (Updated 02/01/19 @ 17:16 by Colton Hernandez DO) Hx of appendectomy Hx of tonsillectomy Family History: Family History (Updated 11/26/18 @ 11:17 by Ann Marie Dumont RN) Father Myocardial infarction Social History: (Last Reviewed 03/27/19 @ 15:17 by Sammie Manzo RN) Social History: adopted: No foster care: No care home: No lives independently: Yes lives independently comment: [facility] current occupational status: retired Tobacco: Smoking Status: Former smoker Alcohol: alcohol intake: never Substance Use: substance use type: does not use Review Of Systems (GEN) - Review of Systems Generalized/Overall Review: Present: Weakness. Absent: Chills, Fever EENTM: Present: No Symptoms Reported Respiratory: Present: Shortness of Breath, Wheezing. Absent: Cough, Stridor Cardiac: Present: Edema. Absent: Chest Pain, Palpitations, Syncope Abdominal: Absent: Nausea, Vomiting, Abdominal Pain Genitourinary: Present: No Symptoms Reported Musculoskeletal: Present: No Symptoms Reported Neurological: Present: No Symptoms Reported Skin: Present: No Symptoms Reported Endocrine: Present: No Symptoms Reported Immunizations: IMMUNIZATION HX Immunizations Up to Date Yes History of Influenza Vaccine Yes Hx Pneumococcal Vaccination Yes Allergies/Adverse Reactions: Allergies Allergy/AdvReac Type Severity Reaction Status Date / Time bupropion HCl Allergy Verified 03/27/19 15:17 [From Wellbutrin] Penicillins Allergy Verified 03/27/19 15:17 Home Medications: HOME MEDICATIONS Aspirin [Aspirin Enteric Coated] 81 mg PO DAILY 10/06/13 [Last Taken 03/27/19 09:00] Cholecalciferol (Vitamin D3) [Vitamin D3] 2,000 unit PO DAILY 10/06/13 [Last Taken 03/27/19 09:00] Potassium Chloride 20 meq PO DAILY 10/06/13 [Last Taken 03/27/19 09:00] Digoxin [Digitek] 0.125 mg PO DAILY 01/20/16 [Last Taken 03/27/19 09:00] Furosemide [Lasix] 40 mg PO DAILY 08/20/17 [Last Taken 03/27/19 09:00] Apixaban [Eliquis] 5 mg PO BID 11/26/18 [Last Taken 03/27/19 09:00] Diltiazem HCl [Diltiazem 24Hr ER] 120 mg PO HS 11/26/18 [Last Taken 03/26/19 21:00] Atorvastatin Calcium 10 mg PO DAILY 03/27/19 [Last Taken 03/26/19 21:00] Calcium 600-Vit D3 500 Softgel 2 mg PO DAILY 03/27/19 [Last Taken 03/27/19 09:00] Citalopram Hydrobromide [Celexa] 20 mg PO DAILY 03/27/19 [Last Taken 03/27/19 09:00] Folic Acid 0.4 mg PO DAILY 03/27/19 [Last Taken 03/27/19 09:00] Metoprolol Tartrate 25 mg PO BID 03/27/19 [Last Taken 03/27/19 09:00] Vit A/Vit C/Vit E/Zinc/Copper [Preservision Areds Tablet] 1 ea PO BID 03/27/19 [Last Taken 03/27/19 09:00] Exam - Exam Vital Signs: Vital Signs - Last Taken Temp 36.4 C 03/27/19 10:59 Pulse 73 03/27/19 13:58 Resp 27 H 03/27/19 13:41 BP 129/58 03/27/19 13:58 Pulse Ox 95 03/27/19 13:41 Constitutional: Present: Alert, Oriented x3, Cooperative, No distress, Elderly ENT Exam: Present: hearing grossly normal. Absent: nasal congestion, nasal drainage Eye Exam: bilateral eye: normal inspection Neck: Present: non-tender, supple Respiratory: Present: chest non-tender, decreased breath sounds. Absent: respiratory distress Cardiovascular/Chest: Present: no edema - +1 pitting to mid russell bilaterally, irregularly irregular. Absent: systolic murmur Abdomen: Present: Normal bowel sounds, soft, nontender, nondistended /Rectal: Present: Exam deferred Skin Exam: Present: normal color, warm/dry Neurologic: Present: alert, normal mood/affect, oriented x 3 Appearance: Present: appropriate appearance, appropriate insight Eye contact: Present: cooperative, good eye contact, normal speech Thoughts: Present: normal thought pattern, normal mood /affect Diagnostic Studies: Abnormal Lab Results 03/27/19 Range/Units 10:17 Potassium 4.7 H (3.4-4.6) mmol/L Random Glucose 127 H (70-110) mg/dL ALT 7 L (19-67) U/L B-Natriuretic Peptide 3212 H (5-550) pg/mL Laboratory Results Sodium 139 mmol/L (132-142) 03/27/19 10:17 139 mmol/L (130-142) 03/27/19 10:17 Potassium 4.7 mmol/L (3.4-4.6) H 03/27/19 10:17 Chloride 106 mmol/L (97-106) 03/27/19 10:17 Carbon Dioxide 24.8 mmol/L (24-32.6) 03/27/19 10:17 12.9 mmol/L (6.8-13.8) 03/27/19 10:17 BUN 14 mg/dL (3-23) 03/27/19 10:17 0.81 mg/dL (0.4-1.4) 03/27/19 10:17 Est GFR (Non-Af Amer) 71 mL/min (60-130) 03/27/19 10:17 17.3 (9.0-21.6) 03/27/19 10:17 127 mg/dL (70-110) H 03/27/19 10:17 Calcium 9.0 mg/dL (7.9-10.9) 03/27/19 10:17 Calcium Adj for Albumin 9.1 mg/dL (8.4-10.2) 03/27/19 10:17 0.4 mg/dL (0.0-1.1) 03/27/19 10:17 AST 12 U/L (0-48) 03/27/19 10:17 ALT 7 U/L (19-67) L 03/27/19 10:17 111 U/L (50-170) 03/27/19 10:17 0.021 ng/mL (0.00-0.10) 03/27/19 10:17 B-Natriuretic Peptide 3212 pg/mL (5-550) H 03/27/19 10:17 6.7 gm/dL (6.2-8.2) 03/27/19 10:17 3.5 gm/dl (3.4-5.0) 03/27/19 10:17 Digoxin 1.7 ng/mL (0.5-2.0) 03/27/19 10:17 Assessment/Plan - Narrative Narrative: 84 old female with history of CHF, placed in observation for likely CHF exacerbation. Patient was given 40 mg of IV Lasix in the ER yesterday, will go ahead and restrict her fluid intake to 2000 mL's per day as well as obtain strict I's and O's. Restart her Lasix orally in the morning. Recheck BMP in the morning. To watch kidney function and electrolyte. Patient has history of COPD but this does not look like an exacerbation. Patient has extensive smoking history. Not currently on any medications for this, [place] [facility] and will discuss her prior to discharge. Lindsey fib is currently rate controlled with a beta-kaylan. She is on Eliquis 5 mg twice daily for anticoagulant. No changes to this at this time as it is stable Hypoxia should improve with diuresis. Hopefully will build to wean her off the oxygen tomorrow. Continue to monitor vitals Heart healthy diet ordered, no DVT prophylaxis needed as she is on Eliquis. Nurse will call with any questions or concerns. - Assessment/Plan (1) Congestive heart failure Problem: Chronic (2) Hypoxia Problem: Resolved (3) Chronic anemia Problem: Acute (4) COPD (chronic obstructive pulmonary disease) Problem: Acute (5) A-fib Problem: Chronic
[2019-03-27] MEDS: ROSUVASTATIN CALCIUM 10 MG TABLET PO SCH (20:58)
[2019-03-27] MEDS: DILTIAZEM HCL 120 MG CAP.SR.24H PO SCH (20:58)
[2019-03-27] MEDS: PANTOPRAZOLE SODIUM 20 MG TABLET.DR PO SCH (20:59)
[2019-03-27] MEDS: METOPROLOL TARTRATE 25 MG TABLET PO SCH (20:59)
[2019-03-27] MEDS: APIXABAN 5 MG TABLET PO SCH (20:59)
[2019-03-27] MEDS ORDERED: ZOLPIDEM TARTRATE 5 MG TABLET PO ONE (22:00)
[2019-03-28] MEDS: APIXABAN 5 MG TABLET PO SCH ×2 (08:29→20:42)
[2019-03-28] MEDS: POTASSIUM CHLORIDE 20 MEQ TABLET.SA PO SCH (08:29)
[2019-03-28] MEDS: FUROSEMIDE 20 MG TABLET PO SCH (08:29)
[2019-03-28] MEDS: CITALOPRAM HYDROBROMIDE 20 MG TABLET PO SCH (08:29)
[2019-03-28] MEDS: ASPIRIN 81 MG TABLET.DR PO SCH (08:29)
[2019-03-28] MEDS: DIGOXIN 0.125 MG TABLET PO SCH (08:30)
[2019-03-28] MEDS: METOPROLOL TARTRATE 25 MG TABLET PO SCH ×2 (08:30→20:41)
[2019-03-28 08:55] LABS: Anion Gap 10.8 mmol/L (6.8-13.8); BUN/Creatinine Ratio 20.9 (9.0-21.6); Calcium * 8.7 mg/dL (7.9-10.9); Carbon Dioxide 29.3 mmol/L (24-32.6); Potassium 4.1 mmol/L (3.4-4.6)
[2019-03-28] MEDS ORDERED: FLU VACC QS2019-20(6MOS UP)/PF 60 MCG/0.5 ML SYRINGE IM ONE (09:00)
[2019-03-28] MEDS ORDERED: ALBUTEROL SULFATE/IPRATROPIUM 3 ML NEBU IH PRN (15:07)
[2019-03-28] MEDS ORDERED: FUROSEMIDE 10 MG/ML VIAL IV ONE (15:08)
--- NOTE | 2019-03-28 15:09 | PN ---
Subjective - Date and Time Seen Date: 03/28/19 Time: 15:08 Subjective Narrative: Patient slept well, no acute events overnight. Vital signs have been stable the patient still requiring oxygen to maintain sats in the low 90s. Patient on roughly 1pound prior to admission with I's and O's. Patient still endorses shortness of breath but thinks she is starting to feel better. Objective - Review of Systems Generalized/Overall Review: Reports: Fatigue. Denies: Weakness, Chills, Fever EENTM: Reports: No Symptoms Reported Respiratory: Reports: Shortness of Breath, Wheezing. Denies: Cough Cardiac: Reports: Edema. Denies: Chest Pain, Palpitations Abdominal: Denies: Nausea, Vomiting, Abdominal Pain Genitourinary Symptoms: Reports: No Symptoms Reported Musculoskeletal Complaints: Reports: Joint Pain - Knees Neurological: Reports: No Symptoms Reported Skin: Reports: No Symptoms Reported Endocrine: Reports: No Symptoms Reported - Vitals Vitals: Last Vital Signs Temp 36.6 C 03/28/19 11:05 Pulse 75 03/28/19 11:05 Resp 18 03/28/19 11:05 BP 101/50 03/28/19 11:05 Pulse Ox 77 L 03/28/19 11:24 - Exam Constitutional: Present: Alert, Oriented x3, Cooperative, Somnolent, Elderly ENT Exam: Present: hearing grossly normal. Absent: nasal congestion, nasal drainage Neck: Present: non-tender, supple, trachea midline Respiratory: Present: no respiratory distress, decreased breath sounds - Bilate ral, diffuse, rhonchi - Bilateral bases, No wheezing Cardiovascular/Chest: Present: irregularly irregular, edema - +1 pitting bilateral shins Abdomen: Present: Normal bowel sounds, soft, nontender /Rectal: Present: Exam deferred Extremity: Present: leg pain, swelling Skin Exam: Present: normal color, warm/dry Neurologic: Present: alert, normal mood/affect, oriented x 3. Absent: sensory deficit Appearance: Present: appropriate appearance, appropriate insight Eye contact: Present: cooperative, good eye contact, normal speech Thoughts: Present: normal thought pattern, normal mood /affect Assessment/Plan Plan Narrative: 84-year-old female here for acute exacerbation of CHF, likely systolic. Observation status changed to inpatient today. Patient still struggling with shortness of breath and hypoxia with oxygen removed. She normally does not require O2 ministration during the day. Her sats dropped into the upper 70s wit h ambulation today. We will go ahead and repeat a one-time dose of 40 mg IV Lasix. Kidney function being monitored and improved overnight. Patient is down roughly 1 pound with weight checks while here on the floor. She will likely to be here at least 1 more day. Patient has history of COPD but this does not look like an exacerbation. Patient has extensive smoking history. Not currently on any medications for this, [facility] [place] [facility] and will discuss this with her prior to discharge. Lindsey fib is currently rate controlled with a beta-kaylan. She is on Eliquis 5 mg twice daily for anticoagulant. No changes to this at this time as it is stable Again hypoxia should improve with diuresis. Repeat Lasix today I will try again to wean her off oxygen tomorrow. Continue to monitor vitals Heart healthy diet ordered, no DVT prophylaxis needed as she is on Eliquis. Nurse will call with any questions or concerns. - Problems/Diagnosis (1) Congestive heart failure Problem: Acute Qualifiers: Heart failure type: systolic Heart failure chronicity: acute on chronic Qualified Code(s): I50.23 - Acute on chronic systolic (congestive) heart failure (2) Hypoxia Problem: Resolved (3) Chronic anemia Problem: Chronic (4) COPD (chronic obstructive pulmonary disease) Problem: Chronic (5) A-fib Problem: Chronic
[2019-03-28] MEDS ORDERED: FUROSEMIDE 10 MG/ML VIAL ONE (16:20)
[2019-03-28] MEDS: DILTIAZEM HCL 120 MG CAP.SR.24H PO SCH (20:39)
[2019-03-28] MEDS: ROSUVASTATIN CALCIUM 10 MG TABLET PO SCH (20:40)
[2019-03-28] MEDS: PANTOPRAZOLE SODIUM 20 MG TABLET.DR PO SCH (20:41)
[2019-03-28] MEDS ORDERED: ROSUVASTATIN CALCIUM 10 MG TABLET PO SCH (21:00)
[2019-03-29 06:06] LABS: Hematocrit 27.7 % (37.0-47.0); Mean Cell Volume 82.7 fl (78-100); Mean Corpuscular Hemoglobin 23.3 pg (27-31); Mean Corpuscular Hgb Conc 28.2 g/dl (32-36); Mean Platelet Volume 11.5 fl (8-12.5); Neutrophil # 6.2 K/mm3 (1.3-6.0); Neutrophil % 75.3 % (42-75.0); Platelet Count 393 K/mm3 (150-450); Red Blood Count 3.35 M/mm3 (4.2-5.4); Red Cell Distribution Width 19.9 % (11.5-14.0); White Blood Count 8.2 K/mm3 (4.0-10.5)
[2019-03-29 06:23] LABS: Anion Gap 8.2 mmol/L (6.8-13.8); BUN/Creatinine Ratio 24.2 (9.0-21.6); Calcium * 8.6 mg/dL (7.9-10.9); Carbon Dioxide 31.8 mmol/L (24-32.6); Estimated Creat Clear 52.8
[2019-03-29 06:46] LABS: Hemoglobin 7.8 gm/dL (12.5-16.0)
[2019-03-29] MEDS: ASPIRIN 81 MG TABLET.DR PO SCH (08:31)
[2019-03-29] MEDS: CALCIUM CARBONATE/VITAMIN D3 1 TAB TABLET PO SCH (08:32)
[2019-03-29] MEDS: CITALOPRAM HYDROBROMIDE 20 MG TABLET PO SCH (08:33)
[2019-03-29] MEDS: APIXABAN 5 MG TABLET PO SCH ×2 (08:33→20:39)
[2019-03-29] MEDS: FOLIC ACID 0.4 MG TABLET PO SCH (08:34)
[2019-03-29] MEDS: DIGOXIN 0.125 MG TABLET PO SCH (08:35)
[2019-03-29] MEDS: POTASSIUM CHLORIDE 20 MEQ TABLET.SA PO SCH (08:35)
[2019-03-29] MEDS: FUROSEMIDE 20 MG TABLET PO SCH (08:36)
[2019-03-29] MEDS: METOPROLOL TARTRATE 25 MG TABLET PO SCH ×2 (08:38→20:39)
[2019-03-29] MEDS: CHOLECALCIFEROL 1,000 UNIT CAPSULE PO SCH (08:39)
[2019-03-29] MEDS ORDERED: CITALOPRAM HYDROBROMIDE 20 MG TABLET PO SCH (09:00)
--- NOTE | 2019-03-29 14:54 | DS ---
(1) Congestive heart failure Problem: Acute Qualifiers: Heart failure type: systolic Heart failure chronicity: acute on chronic Qualified Code(s): I50.23 - Acute on chronic systolic (congestive) heart failure (2) Hypoxia Problem: Acute (3) Chronic anemia Problem: Chronic (4) COPD (chronic obstructive pulmonary disease) Problem: Chronic (5) A-fib Problem: Chronic Date of Discharge:: 03/29/19 Description of Stay: 84-year-old female presented to the hospital with increased dyspnea which began over the course of last couple weeks. Patient has a history of A. fib with RVR, CHF, and COPD. Initial work-up showed her to likely been an acute CHF exacerbation and so she was brought in for admission and diuresed with IV lasix over the span of her stay. Patient is significantly improved with greater than 6 pounds weight loss which in turn improved her breathing. Patient was unable to be weaned off her O2 as she dropped down into the mid 70s with ambulation when oxygen was removed and so she will be discharged home with a home oxygen order. Otherwise rest of her vital signs are stable and on day of discharge she felt much better. Of note hemoglobin dropped from 8.2 down 7.8 which would likely continue to trend downward for her as she has a history of requiring blood transfusions. She was transfused 1 unit prior to being discharged. Repeat hemogram on day of discharge had her hemoglobin to be 9.0. Increases in her Lasix from 20 mg daily to 40 mg daily was changed with her home medications. She was also educated on fluid restriction and to keep it less than 60 fluid ounces a day which she agreed to do. Patient will follow-up with me in 1 week, she will call my office with any questions or concerns that she may have. Procedures Performed: none Results and Findings: Lab Pending Results 03/27/19 10:17: Sodium 139, Plasma Sodium 139, Potassium 4.7 H, Chloride 106, Carbon Dioxide 24.8, Anion Gap 12.9, BUN 14, Creatinine 0.81, Est GFR (Non-Af Amer) 71, BUN/Creatinine Ratio 17.3, Random Glucose 127 H, Calcium 9.0, Calcium Adj for Albumin 9.1, Total Bilirubin 0.4, AST 12, ALT 7 L, Alkaline Phosphatase 111, Troponin I 0.021, B-Natriuretic Peptide 3212 H, Total Protein 6.7, Albumin 3.5, Digoxin 1.7 03/28/19 08:33: Sodium 142, Plasma Sodium 142, Potassium 4.1, Chloride 106, Carbon Dioxide 29.3, Anion Gap 10.8, BUN 14, Creatinine 0.67, Est GFR (Non-Af Amer) 89 D, BUN/Creatinine Ratio 20.9, Random Glucose 102, Calcium 8.7 03/29/19 05:10: WBC 8.2, RBC 3.35 L, Hgb 7.8 L*, Hct 27.7 L, MCV 82.7, MCH 23.3 L, MCHC 28.2 L, RDW 19.9 H, Plt Count 393, MPV 11.5, Immature Gran % (Auto) 0.40, Immature Gran # (Auto) 0.03, Neutrophils % 75.3 H, Lymphocytes % 12.3 L, Monocytes % 8.2, Eosinophils % 3.4 H, Basophils % 0.4, Nucleated RBC % 0.0, Neutrophils # 6.2 H, Lymphocytes # 1.01 L, Monocytes # 0.7, Eosinophils # 0.3, Absolute Basophils 0.0 03/29/19 05:10: Sodium 142, Plasma Sodium 142, Potassium 4.0, Chloride 106, Carbon Dioxide 31.8, Anion Gap 8.2, BUN 16, Creatinine 0.66, Est GFR (Non-Af Amer) 90, BUN/Creatinine Ratio 24.2 H, Random Glucose 109, Calcium 8.6 03/29/19 09:40: Blood Type A Positive, Antibody Screen Negative, Crossmatch See Detail Discharge Location: Home Disposition: Home self-care Condition: Fair Discharge Activity: Activity as tolerated Discharge Diet: Other - fluid restriction of 2000 mls Referrals: Colton Hernandez DO [Primary Care Provider] - One Week Additional Patient Instructions (free text): -Follow up with Dr. Hernandez 04/05 at 3:00p.m. Prescriptions (Any new or edited meds): Furosemide [Lasix] 40 mg PO DAILY #30 tab Metoprolol Tartrate [Lopressor] 12.5 mg PO BID #60 tab Complete Home Medications List: Complete Home Medication List: Aspirin [Aspirin Enteric Coated] 81 mg PO DAILY 10/06/13 Cholecalciferol (Vitamin D3) [Vitamin D3] 2,000 unit PO DAILY 10/06/13 Potassium Chloride 20 meq PO DAILY 10/06/13 Digoxin [Digitek] 0.125 mg PO DAILY 01/20/16 Apixaban [Eliquis] 5 mg PO BID 11/26/18 Diltiazem HCl [Diltiazem 24Hr ER] 120 mg PO HS 11/26/18 Atorvastatin Calcium 10 mg PO DAILY 03/27/19 Calcium 600-Vit D3 500 Softgel 2 mg PO DAILY 03/27/19 Citalopram Hydrobromide [Celexa] 20 mg PO DAILY 03/27/19 Folic Acid 0.4 mg PO DAILY 03/27/19 Vit A/Vit C/Vit E/Zinc/Copper [Preservision Areds Tablet] 1 ea PO BID 03/27/19 Furosemide [Lasix] 40 mg PO DAILY #30 tab 03/31/19 Metoprolol Tartrate [Lopressor] 12.5 mg PO BID #60 tab 03/31/19
[2019-03-29 15:14] LABS: Hematocrit 29.7 % (37.0-47.0); Hemoglobin 8.5 gm/dL (12.5-16.0); Mean Corpuscular Hemoglobin 23.7 pg (27-31); Mean Corpuscular Hgb Conc 28.6 g/dl (32-36); Mean Platelet Volume 10.6 fl (8-12.5); Platelet Count 359 K/mm3 (150-450); Red Blood Count 3.58 M/mm3 (4.2-5.4); Red Cell Distribution Width 19.2 % (11.5-14.0); White Blood Count 7.9 K/mm3 (4.0-10.5)
[2019-03-29] MEDS: PANTOPRAZOLE SODIUM 20 MG TABLET.DR PO SCH (20:38)
[2019-03-29] MEDS: ROSUVASTATIN CALCIUM 10 MG TABLET PO SCH (20:39)
[2019-03-29] MEDS: DILTIAZEM HCL 120 MG CAP.SR.24H PO SCH (20:41)
--- NOTE | 2019-03-29 22:31 | PN ---
Subjective - Date and Time Seen Date: 03/29/19 Time: 22:04 Subjective Narrative: Patient currently feeling better today. No acute events overnight, vital signs have been stablebut she is still requiring oxygen supplementation to maintain sats above 90%. She states that her breathing is better today and overall feels well. Objective - Review of Systems Generalized/Overall Review: Denies: Weakness, Chills, Fever, Fatigue EENTM: Reports: No Symptoms Reported Respiratory: Denies: Cough, Shortness of Breath, Wheezing Cardiac: Reports: Edema. Denies: Chest Pain, Palpitations, Syncope Abdominal: Denies: Nausea, Vomiting, Abdominal Pain Genitourinary Symptoms: Reports: No Symptoms Reported Musculoskeletal Complaints: Reports: No Symptoms Reported Neurological: Reports: No Symptoms Reported Skin: Reports: No Symptoms Reported Endocrine: Reports: No Symptoms Reported - Vitals Vitals: Last Vital Signs Temp 36.9 C 03/29/19 19:28 Pulse 71 03/29/19 20:41 Resp 20 03/29/19 19:28 BP 104/46 03/29/19 20:41 Pulse Ox 95 03/29/19 19:28 - Abnormal Lab Findings Abnormal Lab Findings: Abnormal Lab Results 03/29/19 03/29/19 03/29/19 Range/Units 05:10 05:10 09:40 RBC 3.35 L (4.2-5.4) M/mm3 Hgb 7.8 L* (12.5-16.0) gm/dL Hct 27.7 L (37.0-47.0) % MCH 23.3 L (27-31) pg MCHC 28.2 L (32-36) g/dl RDW 19.9 H (11.5-14.0) % Neutrophils % 75.3 H (42-75.0) % Lymphocytes % 12.3 L (20-51) % Eosinophils % 3.4 H (0.0-3.0) % Neutrophils # 6.2 H (1.3-6.0) K/mm3 Lymphocytes # 1.01 L (1.5-3.5) k/mm3 BUN/Creatinine Ratio 24.2 H (9.0-21.6) Crossmatch See Detail 03/29/19 Range/Units 15:10 RBC 3.58 L (4.2-5.4) M/mm3 Hgb 8.5 L (12.5-16.0) gm/dL Hct 29.7 L (37.0-47.0) % MCH 23.7 L (27-31) pg MCHC 28.6 L (32-36) g/dl RDW 19.2 H (11.5-14.0) % Neutrophils % (42-75.0) % Lymphocytes % (20-51) % Eosinophils % (0.0-3.0) % Neutrophils # (1.3-6.0) K/mm3 Lymphocytes # (1.5-3.5) k/mm3 BUN/Creatinine Ratio (9.0-21.6) Crossmatch - Exam Constitutional: Present: Alert, Oriented x3, Cooperative, Elderly ENT Exam: Present: hearing grossly normal Neck: Present: non-tender, supple Breasts: Present: Exam deferred Respiratory: Present: lungs clear, no respiratory distress, decreased breath sounds. Absent: wheezing Cardiovascular/Chest: Present: normal peripheral pulses, irregularly irregular Abdomen: Present: Normal bowel sounds, soft, nontender, nondistended /Rectal: Present: Exam deferred Skin Exam: Present: normal color, warm/dry Appearance: Present: appropriate appearance, appropriate insight Eye contact: Present: cooperative, good eye contact Thoughts: Present: normal thought pattern, normal mood /affect Assessment/Plan Plan Narrative: 84-year-old female here for acute exacerbation of CHF, likely systolic. Patient no longer struggling with shortness of breath, though hypoxia persists with oxygen removed. Her sats again dropped into the upper 70s with ambulation today. Patients breathing much improved, normal sounds though poor air flow. Patient has had significant diuresis and is done 6lbs since arrival. Kidney function being monitored, stable. Patient has history of COPD but this does not look like an exacerbation. Patient has extensive smoking history. Not currently on any medications for this, [facility] [place] [facility] [place] [facility] and will discuss this with her prior to discharge. Amilcar. fib is currently rate controlled with a beta-kaylan. She is on Eliquis 5 mg twice daily for anticoagulant. No changes to this at this time as it is stable.Due to hx of a-fib and worsening hypoxia with fluid overload, patient likely needs an echo cardiogram. Will order one tomorrow as patient unable to go home today. Patient has hx of symptomatic anemia, has had multiple transfusitons in the past. Hemoglobin down overnight. Will transfuse 1 unit PRBC to see if this will help improve hypoxia. Repear H/H show hemoglobin back to 8.5 Continue to monitor vitals, likely home tomorrow. Heart healthy diet ordered, no DVT prophylaxis needed as she is on Eliquis. Nurse will call with any questions or concerns. - Problems/Diagnosis (1) Congestive heart failure Problem: Acute Qualifiers: Heart failure type: systolic Heart failure chronicity: acute on chronic Qualified Code(s): I50.23 - Acute on chronic systolic (congestive) heart failure (2) Hypoxia Problem: Acute (3) Chronic anemia Problem: Chronic (4) COPD (chronic obstructive pulmonary disease) Problem: Chronic (5) A-fib Problem: Chronic
[2019-03-30] MEDS: CHOLECALCIFEROL 1,000 UNIT CAPSULE PO SCH (08:40)
[2019-03-30] MEDS: FOLIC ACID 0.4 MG TABLET PO SCH (08:40)
[2019-03-30] MEDS: APIXABAN 5 MG TABLET PO SCH ×2 (08:40→20:27)
[2019-03-30] MEDS: CALCIUM CARBONATE/VITAMIN D3 1 TAB TABLET PO SCH (08:40)
[2019-03-30] MEDS: METOPROLOL TARTRATE 25 MG TABLET PO SCH ×2 (08:40→20:27)
[2019-03-30] MEDS: FUROSEMIDE 20 MG TABLET PO SCH (08:41)
[2019-03-30] MEDS: CITALOPRAM HYDROBROMIDE 20 MG TABLET PO SCH (08:41)
[2019-03-30] MEDS: POTASSIUM CHLORIDE 20 MEQ TABLET.SA PO SCH (08:41)
[2019-03-30] MEDS: ASPIRIN 81 MG TABLET.DR PO SCH (08:41)
[2019-03-30] MEDS: DIGOXIN 0.125 MG TABLET PO SCH (08:41)
[2019-03-30] MEDS ORDERED: ZOLPIDEM TARTRATE 5 MG TABLET PO PRN (19:55)
[2019-03-30] MEDS: DILTIAZEM HCL 120 MG CAP.SR.24H PO SCH (20:27)
[2019-03-30] MEDS: ROSUVASTATIN CALCIUM 10 MG TABLET PO SCH (20:27)
[2019-03-30] MEDS: PANTOPRAZOLE SODIUM 20 MG TABLET.DR PO SCH (20:28)
--- NOTE | 2019-03-30 21:32 | PN ---
Subjective - Date and Time Seen Date: 03/30/19 Time: 21:14 Subjective Narrative: Patient did well overnight, continues to improve each day with diuresis. Patient still requiring oxygen though to maintain O2 sats which is new for her. Echocardiogram ordered and should be performed prior to discharge. Patient's vital signs are stable other than her O2 sats dropping with ambulation when oxygen was removed. Patient currently denies shortness of breath, cough, chest pain. Patient also states that the swelling in her legs is significantly better. Objective - Review of Systems Generalized/Overall Review: Reports: No Symptoms Reported EENTM: Reports: No Symptoms Reported Respiratory: Reports: Shortness of Breath - With ambulation. Denies: Cough Cardiac: Denies: Chest Pain, Edema, Palpitations Abdominal: Reports: No Symptoms Reported Genitourinary Symptoms: Reports: No Symptoms Reported Musculoskeletal Complaints: Reports: Joint Pain - Knee pain bilaterally. Denies: Joint Swelling, Muscle Pain Neurological: Reports: No Symptoms Reported Skin: Reports: No Symptoms Reported Endocrine: Reports: No Symptoms Reported - Vitals Vitals: Last Vital Signs Temp 36.9 C 03/30/19 18:46 Pulse 90 03/30/19 20:27 Resp 18 03/30/19 18:46 BP 110/74 03/30/19 20:27 Pulse Ox 94 03/30/19 18:46 - Exam Constitutional: Present: Alert, Oriented x3, Cooperative, Elderly ENT Exam: Present: hearing grossly normal. Absent: nasal congestion, nasal drainage Neck: Present: non-tender, supple Respiratory: Present: lungs clear, decreased breath sounds - Diffusely throughout. Absent: respiratory distress, wheezing Cardiovascular/Chest: Present: normal peripheral pulses, irregularly irregular Abdomen: Present: Normal bowel sounds, soft, nontender /Rectal: Present: Exam deferred Skin Exam: Present: normal color, warm/dry Neurologic: Present: alert, normal mood/affect, oriented x 3 Appearance: Present: appropriate appearance, appropriate insight Eye contact: Present: cooperative, good eye contact, normal speech Thoughts: Present: normal thought pattern, normal mood /affect Assessment/Plan Plan Narrative: 84-year-old female here for acute exacerbation of CHF, likely systolic. Patient no longer struggling with shortness of breath, though hypoxia persists with oxygen removed. Her sats again dropped into the upper 70s with ambulation today. Patient to be discharged home with oxygen once approved through the ID. Home likely tomorrow. Patient has history of COPD but this does not look like an exacerbation. Patient has extensive smoking history. Not currently on any medications for this, her [facility] [place] [facility] [place] [facility] and will discuss this with her prior to discharge. Lindsey olguin is currently rate controlled with a beta-kaylan. She is on Eliquis 5 mg twice daily for anticoagulant. No changes to this at this time as it is stable. Due to hx of a-fib and worsening hypoxia with fluid overload, patient needs an echo cardiogram (been years since last one? per patient) which has been ordered. Patient has hx of symptomatic anemia, has had multiple transfusitons in the past. Hemoglobin down overnight. Transfused 1 unit PRBC yesterday. Repeat BMP and hemogram the morning, continue to monitor vitals, likely home tomorrow. Heart healthy diet ordered, no DVT prophylaxis needed as she is on Eliquis. Nurse will call with any questions or concerns. - Problems/Diagnosis (1) Congestive heart failure Problem: Acute Qualifiers: Heart failure type: systolic Heart failure chronicity: acute on chronic Qualified Code(s): I50.23 - Acute on chronic systolic (congestive) heart failure (2) Hypoxia Problem: Acute (3) Chronic anemia Problem: Chronic (4) COPD (chronic obstructive pulmonary disease) Problem: Chronic (5) A-fib Problem: Chronic
[2019-03-31 05:34] LABS: Hematocrit 31.4 % (37.0-47.0); Mean Corpuscular Hemoglobin 24.1 pg (27-31); Mean Corpuscular Hgb Conc 28.7 g/dl (32-36); Mean Platelet Volume 10.5 fl (8-12.5); Platelet Count 399 K/mm3 (150-450); Red Blood Count 3.74 M/mm3 (4.2-5.4); Red Cell Distribution Width 19.8 % (11.5-14.0)
[2019-03-31 05:50] LABS: Anion Gap 8.9 mmol/L (6.8-13.8); BUN/Creatinine Ratio 25.8 (9.0-21.6); Calcium * 9.1 mg/dL (7.9-10.9); Carbon Dioxide 30.6 mmol/L (24-32.6); Estimated Creat Clear 52.8; Potassium 4.5 mmol/L (3.4-4.6)
[2019-03-31] MEDS ORDERED: FUROSEMIDE 40 MG TABLET PO SCH (09:00)
[2019-03-31] MEDS: ASPIRIN 81 MG TABLET.DR PO SCH (09:19)
[2019-03-31] MEDS: CALCIUM CARBONATE/VITAMIN D3 1 TAB TABLET PO SCH (09:19)
[2019-03-31] MEDS: POTASSIUM CHLORIDE 20 MEQ TABLET.SA PO SCH (09:20)
[2019-03-31] MEDS: FOLIC ACID 0.4 MG TABLET PO SCH (09:20)
[2019-03-31] MEDS: APIXABAN 5 MG TABLET PO SCH (09:20)
[2019-03-31] MEDS: CITALOPRAM HYDROBROMIDE 20 MG TABLET PO SCH (09:20)
[2019-03-31] MEDS: DIGOXIN 0.125 MG TABLET PO SCH (09:21)
[2019-03-31] MEDS: METOPROLOL TARTRATE 25 MG TABLET PO SCH (09:26)
[2019-03-31] MEDS: CHOLECALCIFEROL 1,000 UNIT CAPSULE PO SCH (09:33)
[2019-03-31 15:11] VITALS: BP 103/42
--- NOTE | 2019-04-03 11:04 | ECHO ---
This report is available in the EMR
== END 2019-03-31 15:11 | disposition home or self-care (01) | DRG 292 ==
LOC: ER 10:59 → MS 10:59
PROVIDERS: ADMIT Family Medicine; ATTEND Family Medicine
CPT/HCPCS: 36415; 71020; 71046; 80048; 80053; 80162; 83519; 83880; 84484; 85025; 85027; 86850; 90686; 93005; 93306; 94640; 94664; 94760; 96374; 99285; P9016

== ENCOUNTER 2019-05-25 21:56 | Observation (INO) ==
--- NOTE | 2019-05-25 23:05 | ERNOTE ---
Medical Problem HPI - Narrative Date of Service: 05/25/19 - General Chief Complaint: General Assessment Time Seen by Provider: 05/25/19 23:00 Source: patient, family Exam Limitations: no limitations - Immun/Allergies/Home Medications Immunizations: IMMUNIZATION HX Immunizations Up to Date Yes History of Influenza Vaccine Yes Hx Pneumococcal Vaccination No Allergies/Adverse Reactions: Allergies bupropion HCl [From Wellbutrin] Allergy (Intermediate, Verified 04/05/19 14:50) Hives Penicillins Allergy (Intermediate, Verified 04/05/19 14:50) Hives Home Medications: HOME MEDICATIONS Aspirin [Aspirin Enteric Coated] 81 mg PO DAILY 10/06/13 [Last Taken 03/27/19 09:00] Cholecalciferol (Vitamin D3) [Vitamin D3] 2,000 unit PO DAILY 10/06/13 [Last Taken 03/27/19 09:00] Potassium Chloride 20 meq PO DAILY 10/06/13 [Last Taken 03/27/19 09:00] Digoxin [Digitek] 0.125 mg PO DAILY 01/20/16 [Last Taken 03/27/19 09:00] Apixaban [Eliquis] 5 mg PO BID 11/26/18 [Last Taken 03/27/19 09:00] Diltiazem HCl [Diltiazem 24Hr ER] 120 mg PO HS 11/26/18 [Last Taken 03/26/19 21:00] Atorvastatin Calcium 10 mg PO DAILY 03/27/19 [Last Taken 03/26/19 21:00] Calcium 600-Vit D3 500 Softgel 2 mg PO DAILY 03/27/19 [Last Taken 03/27/19 09:00] Citalopram Hydrobromide [Celexa] 20 mg PO DAILY 03/27/19 [Last Taken 03/27/19 09:00] Folic Acid 0.4 mg PO DAILY 03/27/19 [Last Taken 03/27/19 09:00] Vit A/Vit C/Vit E/Zinc/Copper [Preservision Areds Tablet] 1 ea PO BID 03/27/19 [Last Taken 03/27/19 09:00] furosemide 40 mg tablet 40 mg PO DAILY #30 tab 05/19/19 [Last Taken Unknown] metoprolol tartrate 25 mg tablet 12.5 mg PO BID #60 tab 05/22/19 [Last Taken Unknown] - History of Present History Narrative: Patient is brought in by family members stating she just does not feel well. She states she feels miserable but she is unable to help describe those symptoms at all. She received 2 units of blood yesterday. She has known chronic blood loss but they have been unable to determine where that is from. She also has known chronic atrial fibrillation. She is on Eliquis for this. She has history of congestive heart failure, was recently admitted for this. She is DNR. She has not had a fever. She just states that she feels miserable. She denies having fallen recently. She lives at home independently. Her daughter checks on her frequently. She had a bit of left-sided abdominal pain and constipation recently. She has not vomited. Date (Duration): 05/25/19 Timing: unsure Severity: mild Review of Systems - Review of Systems Constitutional: Absent: fever, chills Respiratory: Absent: shortness of breath Cardiology: Absent: chest pain Gastrointestinal/Abdominal: Present: constipation. Absent: nausea, vomiting Genitourinary: Absent: frequency, pain Skin: Present: no symptoms reported Medical History (Last Reviewed 05/25/19 @ 23:27 by Brynn Nunez MD) Congestive heart failure (CHF) Onset Date: Unknown A-fib Onset Date: Unknown Anemia Onset Date: Unknown Bradycardia Onset Date: ~03/31/19 COPD (chronic obstructive pulmonary disease) Onset Date: Unknown Depression Onset Date: Unknown Hypertension Onset Date: Unknown Surgical History: Surgical History (Last Reviewed 05/25/19 @ 23:27 by Brynn Nunez MD) Hx of appendectomy Onset Date: Unknown Hx of tonsillectomy Onset Date: Unknown Family History: Family History (Last Reviewed 05/25/19 @ 23:27 by Brynn Nunez MD) Father Myocardial infarction Social History: (Last Reviewed 05/25/19 @ 23:27 by Brynn Nunez MD) Social History: adopted: No foster care: No usp: No Marital status: / lives independently: Yes lives independently comment: [facility] household members: none number of children: 3 current occupational status: retired Highest education level completed: some college, no degree Service: Yes branch: [employer] Tobacco: Smoking Status: Former smoker Alcohol: alcohol intake: never Substance Use: substance use type: does not use Dietary Habits: caffeine: No Physical Exam - Physical Exam General Appearance: Present: wd/wn, alert Head Exam: Present: normal inspection Ears, Nose, Throat: Present: normal ENT inspection Neck: Present: normal inspection, supple Respiratory: Present: no respiratory distress, lungs clear Cardiovascular/Chest: Present: irregularly irregular Gastrointestinal/Abdominal: Present: soft, tenderness. Absent: guarding, rebound Extremity Exam: Present: extremity edema Skin Exam: Present: normal color Progress - Results and Orders Patient's Lab Results:: I have reviewed the patient's lab results. Results and Orders: Laboratory Tests 05/25/19 05/25/19 23:00 23:00 WBC 8.1 Hgb 9.0 L Hct 30.5 L Plt Count 499 H Sodium 138 Potassium 4.4 Chloride 107 H BUN 19 Creatinine 0.68 Random Glucose 110 AST 27 ALT 13 L Troponin I Less than 0.017 B-Natriuretic Peptide 1801 H Albumin 3.1 L Laboratory Tests 05/25/19 23:50 Urine Color Yellow Ur Specific [place] >=1.030 Urine Ketones 5 Urine Blood Negative Urine Nitrate Positive H Prot Sulfosalicylic Acd 2+ H Urine Urobilinogen Normal Ur Leukocyte Esterase 25 H Urine RBC None seen Urine WBC 10-25 H Ur Epithelial Cells Trace Urine Bacteria 4+ H - Vital Signs Patient's Vital Signs:: I have reviewed the patient's vital signs. Vital Signs: Vital Signs 05/25/19 22:04 Temperature 36.6 C Pulse Rate 99 Respiratory Rate 28 H Blood Pressure 101/71 O2 Sat by Pulse Oximetry 96 - EKG EKG #1 EKG: atrial fibrillation EKG read: Interp. by me EKG Comments: EKG shows atrial fibrillation, rate of 104. There are changes which indicate old MIs both septal and lateral however these are present also on EKG from March 27, 2019. - X-Ray X-Ray #1 X-Ray: chest Interpretation: Interp. by me X-ray Comments: nothing acute X-Ray #2 X-Ray: abdomen Interpretation: Interp. by me X-ray Comments: abnormal gas pattern, however no signs of perforation or obstruction - Progress/Reassessment Chief Complaint: General Assessment Progress Note-Subjective: 05/26/19 01:12 I discussed findings of congestive heart failure exacerbation UTI with patient. She continues to feel somewhat short of breath. With her other coexisting con ditions I did recommend that the patient be admitted for gentle diuresis and observation. She agreed. She did ask for pain medication while here due to some bilateral hip aches and pains that are not new or unusual for her. She is given hydrocodone. Case discussed with hospitalist. Patient is admitted Departure Clinical Impression: Congestive heart failure Qualifiers: Heart failure type: combined systolic and diastolic Heart failure chronicity: acute on chronic Qualified Code(s): I50.43 - Acute on chronic combined systolic (congestive) and diastolic (congestive) heart failure UTI (urinary tract infection) Qualifiers: Urinary tract infection type: acute cystitis Hematuria presence: with hematuria Qualified Code(s): N30.01 - Acute cystitis with hematuria - Departure Disposition: Still a patient Condition: Fair Referrals: Colton Hernandez DO [Primary Care Provider] -
[2019-05-25 23:08] LABS: Hematocrit 30.5 % (37.0-47.0); Mean Cell Volume 88.2 fl (78-100); Mean Corpuscular Hgb Conc 29.5 g/dl (32-36); Mean Platelet Volume 11.5 fl (8-12.5); Platelet Count 499 K/mm3 (150-450); Red Blood Count 3.46 M/mm3 (4.2-5.4); Red Cell Distribution Width 18.4 % (11.5-14.0); White Blood Count 8.1 K/mm3 (4.0-10.5)
[2019-05-25 23:32] LABS: Troponin I Less than 0.017 ng/mL (0.00-0.10)
[2019-05-25 23:34] LABS: ALT 13 U/L (19-67); AST 27 U/L (0-48); Albumin * 3.1 gm/dl (3.4-5.0); Alkaline Phosphatase * 122 U/L (50-170); BNP * 1801 pg/mL (5-550); BUN/Creatinine Ratio 27.9 (9.0-21.6); Bilirubin, Total 0.5 mg/dL (0.0-1.1); Blood Urea Nitrogen 19 mg/dL (3-23); Ca. Corrected For Albumin 9.1 mg/dL (8.4-10.2); Calcium * 8.7 mg/dL (7.9-10.9); Carbon Dioxide 25.4 mmol/L (24-32.6); Chloride 107 mmol/L (97-106); Glucose * 110 mg/dL (70-110); Potassium 4.4 mmol/L (3.4-4.6); Sodium 138 mmol/L (132-142); Total Protein 6.8 gm/dL (6.2-8.2)
[2019-05-26 00:36] LABS: Urine Bilirubin Negative (NEGATIVE); Urine Blood Negative /ul (NEGATIVE); Urine Ketone 5 mg/dL (NEGATIVE); Urine Protein 15 mg/dL (NEGATIVE); Urine Specific Gravity >=1.030 SP.GR. (1.005-1.010); Urine Urobilinogen Normal (NORMAL); Urine pH 5.5 pH (5.0-7.0)
[2019-05-26 00:50] LABS: Urine Appearance Slightly Cloudy (CLEAR); Urine Bacteria 4+; Urine Color Yellow; Urine Nitrite Positive (NEGATIVE); Urine RBC None Seen /hpf (0-5)
[2019-05-26] MEDS ORDERED: cefTRIAXone SODIUM 1,000 MG/100 ML BAG IV ONE (01:06)
[2019-05-26] MEDS ORDERED: HYDROcodone/ACETAMINOPHEN 1 EACH TABLET PO ONE (01:13)
[2019-05-26] MEDS: ACETAMINOPHEN 325 MG TABLET PO PRN ×2 (08:45→15:30)
[2019-05-26] MEDS ORDERED: FUROSEMIDE 10 MG/ML VIAL IV SCH (09:00)
--- NOTE | 2019-05-26 10:05 | HP ---
Chief Complaint - Chief Complaint Date of Service: 05/26/19 Time of Service: 10:05 Chief Complaint: anxious History of Present Illness: 84-year-old female with history of CHF and symptomatic anemia presented to the ER early this morning with anxiety and "just not feeling well ". Labs drawn at the time showed her to have an elevated B [employer] though she was at her baseline as well as a dirty urine. Patient was not symptomatic from a urinary standpoint and had a normal white count. She did not feel like she had a UTI but was treated for one in the ER due to her overall just feeling not well. She was given a dose of Rocephin. Chest x-ray showed her to be mildly congested vascularly but otherwise was stable compared to previous x-rays. Patient was afebrile and her vitals are stable. Patient was given a dose of IV Lasix and transferred to the floor under observation. Medical History (Last Reviewed 05/26/19 @ 02:31 by Ivette Restrepo RN) Congestive heart failure (CHF) Onset Date: Unknown A-fib Onset Date: Unknown Anemia Onset Date: Unknown Bradycardia Onset Date: ~03/31/19 COPD (chronic obstructive pulmonary disease) Onset Date: Unknown Depression Onset Date: Unknown Hypertension Onset Date: Unknown Surgical History: Surgical History (Last Reviewed 05/26/19 @ 02:31 by Ivette Restrepo RN) Hx of appendectomy Onset Date: Unknown Hx of tonsillectomy Onset Date: Unknown Family History: Family History (Last Reviewed 05/26/19 @ 02:31 by Ivette Restrepo RN) Father Myocardial infarction Social History: (Last Reviewed 05/26/19 @ 02:31 by Ivette Restrepo RN) Social History: adopted: No foster care: No fpc: No Marital status: / lives independently: Yes lives independently comment: [facility] household members: none number of children: 3 current occupational status: retired Highest education level completed: some college, no degree Service: Yes branch: [employer] Tobacco: Smoking Status: Former smoker Alcohol: alcohol intake: never Substance Use: substance use type: does not use Dietary Habits: caffeine: No Review Of Systems (GEN) - Review of Systems Generalized/Overall Review: Present: Weakness. Absent: Chills, Fever EENTM: Present: No Symptoms Reported Respiratory: Present: No Symptoms Reported Cardiac: Present: No Symptoms Reported Abdominal: Present: No Symptoms Reported Genitourinary: Present: No Symptoms Reported. Absent: Burning, Itching, Urgency, Frequency Musculoskeletal: Present: Joint Pain - right hip Neurological: Present: Anxiety Skin: Present: No Symptoms Reported Endocrine: Present: No Symptoms Reported Immunizations: IMMUNIZATION HX Immunizations Up to Date Yes History of Influenza Vaccine Yes Hx Pneumococcal Vaccination No Allergies/Adverse Reactions: Allergies Allergy/AdvReac Type Severity Reaction Status Date / Time bupropion HCl Allergy Intermediate Hives Verified 04/05/19 14:50 [From Wellbutrin] Penicillins Allergy Intermediate Hives Verified 04/05/19 14:50 Home Medications: HOME MEDICATIONS Aspirin [Aspirin Enteric Coated] 81 mg PO DAILY 10/06/13 [Last Taken 03/27/19 09:00] Cholecalciferol (Vitamin D3) [Vitamin D3] 2,000 unit PO DAILY 10/06/13 [Last Taken 03/27/19 09:00] Potassium Chloride 20 meq PO DAILY 10/06/13 [Last Taken 03/27/19 09:00] Digoxin [Digitek] 0.125 mg PO DAILY 01/20/16 [Last Taken 03/27/19 09:00] Apixaban [Eliquis] 5 mg PO BID 11/26/18 [Last Taken 03/27/19 09:00] Diltiazem HCl [Diltiazem 24Hr ER] 120 mg PO HS 11/26/18 [Last Taken 03/26/19 21:00] Atorvastatin Calcium 10 mg PO HS 03/27/19 [Last Taken 03/26/19 21:00] Calcium 600-Vit D3 500 Softgel 2 mg PO DAILY 03/27/19 [Last Taken 03/27/19 09:00] Folic Acid 0.4 mg PO DAILY 03/27/19 [Last Taken 03/27/19 09:00] Vit A/Vit C/Vit E/Zinc/Copper [Preservision Areds Tablet] 1 ea PO BID 03/27/19 [Last Taken 03/27/19 09:00] furosemide 40 mg tablet 40 mg PO DAILY #30 tab 05/19/19 [Last Taken Unknown] metoprolol tartrate 25 mg tablet 12.5 mg PO BID #60 tab 05/22/19 [Last Taken Unknown] Exam - Exam Vital Signs: Vital Signs - Last Taken Temp 36.5 C 05/26/19 06:10 Pulse 73 05/26/19 08:47 Resp 14 05/26/19 06:10 BP 116/60 05/26/19 08:47 Pulse Ox 92 L 05/26/19 06:10 Constitutional: Present: Alert, Oriented x3, Cooperative, Elderly ENT Exam: Present: hearing grossly normal. Absent: nasal congestion, nasal drainage Eye Exam: bilateral eye: normal inspection, PERRL, EOMI Neck: Present: non-tender, supple Back Exam: Present: normal inspection, no CVA tenderness Respiratory: Present: chest non-tender, lungs clear, normal breath sounds Cardiovascular/Chest: Present: no murmur, irregularly irregular Abdomen: Present: soft, nontender, nondistended /Rectal: Present: Exam deferred Extremity: Present: leg pain - right hip pain with flex. Absent: lower extremity edema Skin Exam: Present: normal color, warm/dry Appearance: Present: appropriate appearance, appropriate insight Eye contact: Present: cooperative, good eye contact, normal speech Thoughts: Present: normal thought pattern Diagnostic Studies: Abnormal Lab Results 05/25/19 05/25/19 05/25/19 Range/Units 23:00 23:00 23:50 RBC 3.46 L (4.2-5.4) M/mm3 Hgb 9.0 L (12.5-16.0) gm/dL Hct 30.5 L (37.0-47.0) % MCH 26.0 L (27-31) pg MCHC 29.5 L (32-36) g/dl RDW 18.4 H (11.5-14.0) % Plt Count 499 H (150-450) K/mm3 Lymphocytes % 11.4 L (20-51) % Monocytes % 11.5 H (0.0-9) % Lymphocytes # 0.93 L (1.5-3.5) k/mm3 Chloride 107 H (97-106) mmol/L BUN/Creatinine Ratio 27.9 H (9.0-21.6) ALT 13 L (19-67) U/L B-Natriuretic Peptide 1801 H (5-550) pg/mL Albumin 3.1 L (3.4-5.0) gm/dl Urine Protein 15 H (NEGATIVE) mg/dL Urine Nitrate Positive H (NEGATIVE) Prot Sulfosalicylic Acd 2+ H (0) mg/dL Ur Leukocyte Esterase 25 H (NEGATIVE) /ul Urine WBC 10-25 H (0-5) /hpf Urine Bacteria 4+ H (NONE) Laboratory Results WBC 8.1 K/mm3 (4.0-10.5) 05/25/19 23:00 RBC 3.46 M/mm3 (4.2-5.4) L 05/25/19 23:00 Hgb 9.0 gm/dL (12.5-16.0) L 05/25/19 23:00 Hct 30.5 % (37.0-47.0) L 05/25/19 23:00 MCV 88.2 fl (78-100) 05/25/19 23:00 MCH 26.0 pg (27-31) L 05/25/19 23:00 MCHC 29.5 g/dl (32-36) L 05/25/19 23:00 RDW 18.4 % (11.5-14.0) H 05/25/19 23:00 Plt Count 499 K/mm3 (150-450) H 05/25/19 23:00 MPV 11.5 fl (8-12.5) 05/25/19 23:00 Immature Gran % (Auto) 0.40 % (0.001-0.429) 05/25/19 23:00 Immature Gran # (Auto) 0.03 K/mm3 (0.000-0.0310) 05/25/19 23:00 Neutrophils % 74.0 % (42-75.0) 05/25/19 23:00 Lymphocytes % 11.4 % (20-51) L 05/25/19 23:00 Monocytes % 11.5 % (0.0-9) H 05/25/19 23:00 Eosinophils % 2.2 % (0.0-3.0) 05/25/19 23:00 Basophils % 0.5 % (0.0-1.0) 05/25/19 23:00 Nucleated RBC % 0.0 k/mm3 (0-1) 05/25/19 23:00 Neutrophils # 6.0 K/mm3 (1.3-6.0) 05/25/19 23:00 Lymphocytes # 0.93 k/mm3 (1.5-3.5) L 05/25/19 23:00 Monocytes # 0.9 k/mm3 (0.0-1.0) 05/25/19 23:00 Eosinophils # 0.2 k/mm3 (0.0-0.7) 05/25/19 23:00 Absolute Basophils 0.0 k/mm3 (0.0-0.1) 05/25/19 23:00 Sodium 138 mmol/L (132-142) 05/25/19 23:00 Plasma Sodium 138 mmol/L (130-142) 05/25/19 23:00 Potassium 4.4 mmol/L (3.4-4.6) 05/25/19 23:00 Chloride 107 mmol/L (97-106) H 05/25/19 23:00 Carbon Dioxide 25.4 mmol/L (24-32.6) 05/25/19 23:00 Anion Gap 10.0 mmol/L (6.8-13.8) 05/25/19 23:00 BUN 19 mg/dL (3-23) 05/25/19 23:00 Creatinine 0.68 mg/dL (0.4-1.4) 05/25/19 23:00 Est GFR (Non-Af Amer) 87 mL/min (60-130) 05/25/19 23:00 BUN/Creatinine Ratio 27.9 (9.0-21.6) H 05/25/19 23:00 Random Glucose 110 mg/dL (70-110) 05/25/19 23:00 Calcium 8.7 mg/dL (7.9-10.9) 05/25/19 23:00 Calcium Adj for Albumin 9.1 mg/dL (8.4-10.2) 05/25/19 23:00 Total Bilirubin 0.5 mg/dL (0.0-1.1) 05/25/19 23:00 AST 27 U/L (0-48) 05/25/19 23:00 ALT 13 U/L (19-67) L 05/25/19 23:00 Alkaline Phosphatase 122 U/L (50-170) 05/25/19 23:00 Troponin I Less than 0.017 ng/mL (0.00-0.10) 05/25/19 23:00 B-Natriuretic Peptide 1801 pg/mL (5-550) H 05/25/19 23:00 Total Protein 6.8 gm/dL (6.2-8.2) 05/25/19 23:00 Albumin 3.1 gm/dl (3.4-5.0) L 05/25/19 23:00 Urine Color Yellow 05/25/19 23:50 Urine Appearance Slightly cloudy (CLEAR) 05/25/19 23:50 Urine pH 5.5 pH (5.0-7.0) 05/25/19 23:50 Ur Specific [place] >=1.030 SP.GR. (1.005-1.010) 05/25/19 23:50 Urine Protein 15 mg/dL (NEGATIVE) H 05/25/19 23:50 Urine Glucose (UA) Negative mg/dL (NEGATIVE) 05/25/19 23:50 Urine Ketones 5 mg/dL (NEGATIVE) 05/25/19 23:50 Urine Blood Negative /ul (NEGATIVE) 05/25/19 23:50 Urine Nitrate Positive (NEGATIVE) H 05/25/19 23:50 Urine Bilirubin Negative mg/dl (NEGATIVE) 05/25/19 23:50 Prot Sulfosalicylic Acd 2+ mg/dL (0) H 05/25/19 23:50 Urine Urobilinogen Normal EU/dl (NORMAL) 05/25/19 23:50 Ur Leukocyte Esterase 25 /ul (NEGATIVE) H 05/25/19 23:50 Urine RBC None seen /hpf (0-5) 05/25/19 23:50 Urine WBC 10-25 /hpf (0-5) H 05/25/19 23:50 Ur Epithelial Cells Trace /hpf (0-5) 05/25/19 23:50 Urine Bacteria 4+ (NONE) H 05/25/19 23:50 Urine Culture Comments Culture to follow 05/25/19 23:50 Assessment/Plan - Narrative Narrative: 84-year-old female admitted for likely anxiety though watching CHF exacerbation and urinary tract infection. She was given a dose of Rocephin in the ER. She is also given a dose of IV Lasix. Patient has diuresed well, currently not short of breath and lung sounds are clear. She is not fluid overloaded and has no edema in her legs. Patient also has no tenderness in her belly, denies urgency frequency or burning with urination. Patient is willing to go home as she is stable and feels much better. Started her on Prozac today to help with her anxiety which we will continue. Will notify patient tomorrow of her preliminary urine culture to determine whether or not she needs to continue antibiotics which she is understanding and in agreement with. Patient will be discharged home in stable condition to follow with me in 1 week. Patient will call with questions or concerns. - Assessment/Plan (1) Anxiety Problem: Acute (2) UTI (urinary tract infection) Problem: Acute Qualifiers: Urinary tract infection type: acute cystitis Hematuria presence: with hematuria Qualified Code(s): N30.01 - Acute cystitis with hematuria (3) Congestive heart failure Problem: Acute Qualifiers: Heart failure type: systolic Heart failure chronicity: acute on chronic Qualified Code(s): I50.23 - Acute on chronic systolic (congestive) heart failure
[2019-05-26] MEDS ORDERED: FUROSEMIDE 40 MG TABLET PO SCH (10:15)
[2019-05-26] MEDS ORDERED: APIXABAN 5 MG TABLET PO SCH (10:15)
[2019-05-26] MEDS ORDERED: ASPIRIN 81 MG TABLET.DR PO SCH (10:15)
[2019-05-26] MEDS ORDERED: FLUoxetine HCL 20 MG CAPSULE PO SCH (10:15)
[2019-05-26] MEDS ORDERED: DIGOXIN 0.125 MG TABLET PO SCH (10:15)
--- NOTE | 2019-05-26 17:56 | DS ---
(1) Anxiety Problem: Acute (2) UTI (urinary tract infection) Problem: Acute Qualifiers: Urinary tract infection type: acute cystitis Hematuria presence: with hematuria Qualified Code(s): N30.01 - Acute cystitis with hematuria (3) Congestive heart failure Problem: Chronic Qualifiers: Heart failure type: systolic Heart failure chronicity: acute on chronic Qualified Code(s): I50.23 - Acute on chronic systolic (congestive) heart failure Date of Discharge:: 05/26/19 Description of Stay: 84-year-old female admitted for likely anxiety though watching CHF exacerbation and urinary tract infection. She was given a dose of Rocephin in the ER. She is also given a dose of IV Lasix. Patient has diuresed well, currently not short of breath and lung sounds are clear. She is not fluid overloaded and has no edema in her legs. Patient also has no tenderness in her belly, denies urgency frequency or burning with urination. Patient is willing to go home as she is stable and feels much better. Started her on Prozac today to help with her anxiety which we will continue. Her vital signs have been stable since being here and she has been afebrile. Will notify patient tomorrow of her preliminary urine culture to determine whether or not she needs to continue antibiotics which she is understanding and in agreement with. Patient will be discharged home in stable condition to follow with me in 1 week. Patient will call with questions or concerns. Procedures Performed: none Results and Findings: Lab Pending Results 05/25/19 23:00: WBC 8.1, RBC 3.46 L, Hgb 9.0 L, Hct 30.5 L, MCV 88.2, MCH 26.0 L, MCHC 29.5 L, RDW 18.4 H, Plt Count 499 H, MPV 11.5, Immature Gran % (Auto) 0.40, Immature Gran # (Auto) 0.03, Neutrophils % 74.0, Lymphocytes % 11.4 L, Monocytes % 11.5 H, Eosinophils % 2.2, Basophils % 0.5, Nucleated RBC % 0.0, Neutrophils # 6.0, Lymphocytes # 0.93 L, Monocytes # 0.9, Eosinophils # 0.2, Absolute Basophils 0.0 05/25/19 23:00: Sodium 138, Plasma Sodium 138, Potassium 4.4, Chloride 107 H, Carbon Dioxide 25.4, Anion Gap 10.0, BUN 19, Creatinine 0.68, Est GFR (Non-Af Amer) 87, BUN/Creatinine Ratio 27.9 H, Random Glucose 110, Calcium 8.7, Calcium Adj for Albumin 9.1, Total Bilirubin 0.5, AST 27, ALT 13 L, Alkaline Phosphatase 122, Troponin I Less than 0.017, B-Natriuretic Peptide 1801 H, Total Protein 6.8, Albumin 3.1 L 05/25/19 23:50: Urine Color Yellow, Urine Appearance Slightly cloudy, Urine pH 5.5, Ur Specific [place] >=1.030, Urine Protein 15 H, Urine Glucose (UA) Negative, Urine Ketones 5, Urine Blood Negative, Urine Nitrate Positive H, Urine Bilirubin Negative, Prot Sulfosalicylic Acd 2+ H, Urine Urobilinogen Normal, Ur Leukocyte Esterase 25 H, Urine RBC None seen, Urine WBC 10-25 H, Ur Epithelial Cells Trace, Urine Bacteria 4+ H, Urine Culture Comments Culture to follow Discharge Location: Home Disposition: Home self-care Condition: Fair Discharge Activity: Activity as tolerated Discharge Diet: General/regular food Referrals: Colton Hernandez DO [Primary Care Provider] - One Week Additional Patient Instructions (free text): TCM please at discharge. Prescriptions (Any new or edited meds): Ciprofloxacin HCl [Cipro] 500 mg PO BID #10 tab Transmission Status: Pending to [place], [place] FLUoxetine HCL [Prozac] 20 mg PO DAILY #30 cap Transmission Status: Pending to [place], [place] Complete Home Medications List: Complete Home Medication List: Aspirin [Aspirin Enteric Coated] 81 mg PO DAILY 10/06/13 Cholecalciferol (Vitamin D3) [Vitamin D3] 2,000 unit PO DAILY 10/06/13 Potassium Chloride 20 meq PO DAILY 10/06/13 Digoxin [Digitek] 0.125 mg PO DAILY 01/20/16 Apixaban [Eliquis] 5 mg PO BID 11/26/18 Diltiazem HCl [Diltiazem 24Hr ER] 120 mg PO HS 11/26/18 Atorvastatin Calcium 10 mg PO HS 03/27/19 Calcium 600-Vit D3 500 Softgel 2 mg PO DAILY 03/27/19 Folic Acid 0.4 mg PO DAILY 03/27/19 Vit A/Vit C/Vit E/Zinc/Copper [Preservision Areds Tablet] 1 ea PO BID 03/27/19 furosemide 40 mg tablet 40 mg PO DAILY #30 tab 05/19/19 metoprolol tartrate 25 mg tablet 12.5 mg PO BID #60 tab 05/22/19 Ciprofloxacin HCl [Cipro] 500 mg PO BID #10 tab 05/26/19 FLUoxetine HCL [Prozac] 20 mg PO DAILY #30 cap 05/26/19
[2019-05-26 18:41] VITALS: BP 124/54
[2019-05-26] MEDS ORDERED: ROSUVASTATIN CALCIUM 10 MG TABLET PO SCH (21:00)
[2019-05-26] MEDS ORDERED: DILTIAZEM HCL 120 MG CAP.SR.24H PO SCH (21:00)
[2019-05-26] MEDS ORDERED: METOPROLOL TARTRATE 25 MG TABLET PO SCH (21:00)
[2019-05-27] MEDS ORDERED: POTASSIUM CHLORIDE 20 MEQ TABLET.SA PO SCH (09:00)
[2019-05-27] MEDS ORDERED: FOLIC ACID 0.4 MG TABLET PO SCH (09:00)
== END 2019-05-26 18:30 | disposition home or self-care (01) ==
LOC: ER 21:56 → MS 21:56
PROVIDERS: ADMIT Family Medicine; ATTEND Family Medicine
CPT/HCPCS: 36415; 71010; 71045; 74000; 74018; 80053; 81001; 83519; 83880; 84484; 85025; 87077; 87086; 87186; 93005; 96365; 96375; 99285; G0378

== ENCOUNTER 2019-07-03 13:14 | Observation (INO) ==
[2019-07-03 14:30] LABS: Mean Cell Volume 82.1 fl (78-100); Mean Corpuscular Hemoglobin 23.3 pg (27-31); Mean Corpuscular Hgb Conc 28.4 g/dl (32-36); Platelet Count 505 K/mm3 (150-450); Red Blood Count 2.62 M/mm3 (4.2-5.4); Red Cell Distribution Width 17.6 % (11.5-14.0); White Blood Count 8.8 K/mm3 (4.0-10.5)
[2019-07-03 14:34] LABS: Hemoglobin 6.1 gm/dL (12.5-16.0)
[2019-07-03 14:35] LABS: Hematocrit 21.5 % (37.0-47.0)
[2019-07-03] MEDS ORDERED: ACETAMINOPHEN 325 MG TABLET PO PRN (18:08)
[2019-07-03] MEDS ORDERED: FUROSEMIDE 10 MG/ML VIAL IV ONE (18:13)
--- NOTE | 2019-07-03 18:32 | HP ---
Chief Complaint - Chief Complaint Date of Service: 07/03/19 Time of Service: 18:23 Chief Complaint: Fatigue, shortness of breath, pale History of Present Illness: 84-year-old female with a history of COPD, CHF, anemia, depression, hypertension, A. fib presented to the clinic today due to fatigue and shortness of breath the last few days. Daughter states that she is not been acting herself lately. Patient has a history of symptomatic anemia, hemogram ordered which showed her to have a hemoglobin of 6.1 with a corresponding hematocrit. She was admitted to the floor under observation to be transfused 2 units. Her and her family have decided that they would like to work-up this anemia which likely can be done in the outpatient setting as previous Hemoccults were negative. The [place] was intending to order an EGD and then possibly a colonoscopy. Will discuss this with our surgeons here to see if that would be something they be willing to do here. Patient's vital signs are stable and she is afebrile. Medical History (Last Reviewed 07/03/19 @ 16:26 by Sammie Manzo RN) A-fib Onset Date: Unknown Anemia Onset Date: Unknown Bradycardia Onset Date: ~03/31/19 COPD (chronic obstructive pulmonary disease) Onset Date: Unknown Congestive heart failure (CHF) Onset Date: Unknown Depression Onset Date: Unknown Hypertension Onset Date: Unknown Surgical History: Surgical History (Last Reviewed 07/03/19 @ 16:26 by Sammie Manzo RN) Hx of appendectomy Onset Date: Unknown Hx of tonsillectomy Onset Date: Unknown Family History: Family History (Last Reviewed 07/03/19 @ 16:27 by Sammie Manzo RN) Father Myocardial infarction Social History: (Last Reviewed 07/03/19 @ 16:28 by Sammie Manzo RN) Social History: adopted: No foster care: No group home: No Marital status: / lives independently: Yes lives independently comment: [facility] household members: none number of children: 3 current occupational status: retired Highest education level completed: some college, no degree Service: Yes branch: [employer] Tobacco: Smoking Status: Former smoker Alcohol: alcohol intake: never Substance Use: substance use type: does not use Dietary Habits: caffeine: No Review Of Systems (GEN) - Review of Systems Generalized/Overall Review: Present: Fatigue. Absent: Fever, Malaise EENTM: Present: No Symptoms Reported Respiratory: Present: Shortness of Breath. Absent: Cough Cardiac: Absent: No Symptoms Reported, Chest Pain, Edema, Palpitations Abdominal: Absent: Nausea, Vomiting, Abdominal Pain Genitourinary: Present: No Symptoms Reported Musculoskeletal: Present: No Symptoms Reported Neurological: Present: No Symptoms Reported Skin: Present: No Symptoms Reported Endocrine: Present: No Symptoms Reported Immunizations: IMMUNIZATION HX Immunizations Up to Date Yes History of Influenza Vaccine Yes Hx Pneumococcal Vaccination No Allergies/Adverse Reactions: Allergies Allergy/AdvReac Type Severity Reaction Status Date / Time bupropion HCl Allergy Intermediate Hives Verified 07/03/19 16:28 [From Wellbutrin] Penicillins Allergy Intermediate Hives Verified 07/03/19 16:28 Home Medications: HOME MEDICATIONS Aspirin [Aspirin Enteric Coated] 81 mg PO DAILY 10/06/13 [Last Taken 03/27/19 09:00] Cholecalciferol (Vitamin D3) [Vitamin D3] 2,000 unit PO DAILY 10/06/13 [Last Taken 03/27/19 09:00] Potassium Chloride 20 meq PO DAILY 10/06/13 [Last Taken 03/27/19 09:00] Digoxin [Digitek] 0.125 mg PO HS 01/20/16 [Last Taken 03/27/19 09:00] Apixaban [Eliquis] 5 mg PO BID 11/26/18 [Last Taken 03/27/19 09:00] Diltiazem HCl [Diltiazem 24Hr ER] 120 mg PO HS 11/26/18 [Last Taken 03/26/19 21:00] Atorvastatin Calcium 10 mg PO HS 03/27/19 [Last Taken 03/26/19 21:00] Calcium Carbonate/Vitamin D3 [Calcium 600-Vit D3 500 Softgel] 2 each PO DAILY #0 03/27/19 [Last Taken 03/27/19 09:00] Folic Acid 0.4 mg PO DAILY 03/27/19 [Last Taken 03/27/19 09:00] Vit A/Vit C/Vit E/Zinc/Copper [Preservision Areds Tablet] 1 ea PO BID 03/27/19 [Last Taken 03/27/19 09:00] furosemide 40 mg tablet 40 mg PO DAILY #30 tab 05/19/19 [Last Taken Unknown] metoprolol tartrate 25 mg tablet 12.5 mg PO BID #60 tab 05/22/19 [Last Taken Unknown] FLUoxetine HCL [Prozac] 20 mg PO DAILY #30 cap 05/26/19 [Last Taken Unknown] Exam - Exam Vital Signs: Vital Signs - Last Taken Temp 35.9 C L 07/03/19 17:13 Pulse 61 07/03/19 17:13 Resp 20 07/03/19 17:13 BP 122/43 07/03/19 17:13 Pulse Ox 95 07/03/19 17:13 Constitutional: Present: Alert, Oriented x3, Elderly ENT Exam: Present: hearing grossly normal Neck: Present: non-tender, supple Respiratory: Present: lungs clear, normal breath sounds, no respiratory distress Cardiovascular/Chest: Present: irregularly irregular Skin Exam: Present: cool/dry, pallor Appearance: Present: appropriate appearance, appropriate insight Eye contact: Present: cooperative, good eye contact Thoughts: Present: normal thought pattern, normal mood /affect Diagnostic Studies: Abnormal Lab Results 07/03/19 07/03/19 Range/Units 13:18 14:25 RBC 2.62 L (4.2-5.4) M/mm3 Hgb 6.1 L* (12.5-16.0) gm/dL Hct 21.5 L* (37.0-47.0) % MCH 23.3 L (27-31) pg MCHC 28.4 L (32-36) g/dl RDW 17.6 H (11.5-14.0) % Plt Count 505 H (150-450) K/mm3 Crossmatch See Detail Laboratory Results WBC 8.8 K/mm3 (4.0-10.5) 07/03/19 14:25 RBC 2.62 M/mm3 (4.2-5.4) L 07/03/19 14:25 Hgb 6.1 gm/dL (12.5-16.0) L* 07/03/19 14:25 Hct 21.5 % (37.0-47.0) L* 07/03/19 14:25 MCV 82.1 fl (78-100) 07/03/19 14:25 MCH 23.3 pg (27-31) L 07/03/19 14:25 MCHC 28.4 g/dl (32-36) L 07/03/19 14:25 RDW 17.6 % (11.5-14.0) H 07/03/19 14:25 Plt Count 505 K/mm3 (150-450) H 07/03/19 14:25 MPV 11.0 fl (8-12.5) 07/03/19 14:25 Blood Type A Positive 07/03/19 13:18 Antibody Screen Negative 07/03/19 13:18 Crossmatch See Detail 07/03/19 13:18 Assessment/Plan - Narrative Narrative: 84-year-old female with symptomatic anemia placed in observation the floor to be transfused 2 units. She will be given 40 mg IV Lasix in between each unit. Hemogram to be checked 2 hours posttransfusion. We will also check BMP currently to look at kidney function and electrolytes. Patient likely go home tomorrow morning following transfusion. Will refer her to general surgery in order to start the work-up for symptomatic anemia. Continue Eliquis for her A. fib, no other DVT prophylaxis needed. Regular diet, nurse to call with any questions or concerns. Chronic medications restarted, Tylenol for pain. - Assessment/Plan (1) Rapid atrial fibrillation Problem: Acute (2) Congestive heart failure Problem: Chronic Qualifiers: (3) Symptomatic anemia Problem: Resolved (4) COPD (chronic obstructive pulmonary disease) Problem: Chronic
[2019-07-03] MEDS ORDERED: METOPROLOL TARTRATE 25 MG TABLET ONE (19:56)
[2019-07-03] MEDS ORDERED: APIXABAN 5 MG TABLET PO ONE (19:56)
[2019-07-03] MEDS ORDERED: FUROSEMIDE 10 MG/ML VIAL ONE (19:57)
[2019-07-03] MEDS: APIXABAN 5 MG TABLET PO SCH (20:25)
[2019-07-03] MEDS: METOPROLOL TARTRATE 25 MG TABLET PO SCH (20:27)
[2019-07-03] MEDS ORDERED: DIGOXIN 0.125 MG TABLET PO SCH (21:00)
[2019-07-03] MEDS ORDERED: DILTIAZEM HCL 120 MG CAP.SR.24H PO SCH (21:00)
[2019-07-03] MEDS ORDERED: ROSUVASTATIN CALCIUM 10 MG TABLET PO SCH (21:00)
[2019-07-04 01:50] LABS: Hematocrit 26.3 % (37.0-47.0); Mean Cell Volume 82.2 fl (78-100); Mean Corpuscular Hgb Conc 30.4 g/dl (32-36); Mean Platelet Volume 10.8 fl (8-12.5); Platelet Count 406 K/mm3 (150-450); Red Cell Distribution Width 16.9 % (11.5-14.0); White Blood Count 7.6 K/mm3 (4.0-10.5)
[2019-07-04 01:58] LABS: Anion Gap 10.4 mmol/L (6.8-13.8); BUN/Creatinine Ratio 30.8 (9.0-21.6); Calcium * 8.3 mg/dL (7.9-10.9); Carbon Dioxide 27.5 mmol/L (24-32.6); Estimated Creat Clear 35.1; Potassium 3.9 mmol/L (3.4-4.6)
[2019-07-04] MEDS: APIXABAN 5 MG TABLET PO SCH (08:16)
[2019-07-04] MEDS: METOPROLOL TARTRATE 25 MG TABLET PO SCH (08:17)
[2019-07-04] MEDS ORDERED: POTASSIUM CHLORIDE 20 MEQ TABLET.SA PO SCH (09:00)
[2019-07-04] MEDS ORDERED: CHOLECALCIFEROL 1,000 UNIT CAPSULE PO SCH (09:00)
[2019-07-04] MEDS ORDERED: ASPIRIN 81 MG TABLET.DR PO SCH (09:00)
[2019-07-04] MEDS ORDERED: CALCIUM CARBONATE/VITAMIN D3 1 TAB TABLET PO SCH (09:00)
[2019-07-04] MEDS ORDERED: FLUoxetine HCL 20 MG CAPSULE PO SCH (09:00)
[2019-07-04] MEDS ORDERED: FOLIC ACID 0.4 MG TABLET PO SCH (09:00)
[2019-07-04] MEDS ORDERED: FUROSEMIDE 40 MG TABLET PO SCH (09:00)
--- NOTE | 2019-07-04 09:43 | DS ---
(1) Rapid atrial fibrillation Problem: Chronic (2) Congestive heart failure Problem: Chronic Qualifiers: (3) Symptomatic anemia Problem: Resolved (4) COPD (chronic obstructive pulmonary disease) Problem: Chronic Hospital Course: 84-year-old female with history of chronic anemia presented to the clinic feeling fatigued, developed shortness of breath. Not acting herself per da ughter. Hemogram obtained showed her to have a hemoglobin of 6.1. She was admitted under observation to receive 2 units packed red blood cells. Repeat H&H came back at 8.0 with correspond hematocrit. Patient's been much better this morning and her vital signs been stable. She been afebrile. Patient will like to work this anemia up now as she has not wanted to do this previously. We will get her established with our surgeons for EGD and colonoscopy which is at the [place] recommended. No changes to her chronic medications. She will follow-up with me in 2 weeks. Procedures Performed: none Results and Findings: Lab Pending Results 07/03/19 13:18: Blood Type A Positive, Antibody Screen Negative, Crossmatch See Detail 07/03/19 14:25: WBC 8.8, RBC 2.62 L, Hgb 6.1 L*, Hct 21.5 L*, MCV 82.1, MCH 23.3 L, MCHC 28.4 L, RDW 17.6 H, Plt Count 505 H, MPV 11.0 07/04/19 01:45: WBC 7.6, RBC 3.20 L, Hgb 8.0 L, Hct 26.3 L, MCV 82.2, MCH 25.0 L, MCHC 30.4 L, RDW 16.9 H, Plt Count 406, MPV 10.8 07/04/19 01:45: Sodium 137, Plasma Sodium 137, Potassium 3.9, Chloride 103, Carbon Dioxide 27.5, Anion Gap 10.4, BUN 28 H, Creatinine 0.91, Est GFR (Non-Af Amer) 62 D, BUN/Creatinine Ratio 30.8 H, Random Glucose 116 H, Calcium 8.3 Discharge Location: Home Disposition: Home self-care Condition: Stable Discharge Activity: Activity as tolerated Discharge Diet: General/regular food Referrals: Colton Hernandez DO [Primary Care Provider] - Two Weeks Bagan,W Castillo, MD [Staff Physician] - One Week (Chronic anemia, patient will need EGD and [facility] Complete Home Medications List: Complete Home Medication List: Aspirin [Aspirin Enteric Coated] 81 mg PO DAILY 10/06/13 Cholecalciferol (Vitamin D3) [Vitamin D3] 2,000 unit PO DAILY 10/06/13 Potassium Chloride 20 meq PO DAILY 10/06/13 Digoxin [Digitek] 0.125 mg PO HS 01/20/16 Apixaban [Eliquis] 5 mg PO BID 11/26/18 Diltiazem HCl [Diltiazem 24Hr ER] 120 mg PO HS 11/26/18 Atorvastatin Calcium 10 mg PO HS 03/27/19 Calcium Carbonate/Vitamin D3 [Calcium 600-Vit D3 500 Softgel] 2 each PO DAILY #0 03/27/19 Folic Acid 0.4 mg PO DAILY 03/27/19 Vit A/Vit C/Vit E/Zinc/Copper [Preservision Areds Tablet] 1 ea PO BID 03/27/19 furosemide 40 mg tablet 40 mg PO DAILY #30 tab 05/19/19 metoprolol tartrate 25 mg tablet 12.5 mg PO BID #60 tab 05/22/19 FLUoxetine HCL [Prozac] 20 mg PO DAILY #30 cap 05/26/19
[2019-07-04 11:33] VITALS: BP 119/59
== END 2019-07-04 11:58 | disposition home or self-care (01) ==
LOC: MS 13:14 → LAB 13:14
PROVIDERS: ADMIT Family Medicine; ATTEND Family Medicine
CPT/HCPCS: 36415; 36430; 80048; 85027; 86850; 96374; G0378; P9016

== ENCOUNTER 2019-07-20 08:36 | Observation (INO) ==
[2019-07-20 09:24] LABS: Mean Cell Volume 84.5 fl (78-100); Mean Corpuscular Hgb Conc 27.2 g/dl (32-36); Mean Platelet Volume 11.7 fl (8-12.5); Platelet Count 650 K/mm3 (150-450); Red Blood Count 2.13 M/mm3 (4.2-5.4); Red Cell Distribution Width 19.9 % (11.5-14.0); White Blood Count 9.9 K/mm3 (4.0-10.5)
[2019-07-20 09:33] LABS: Hemoglobin 4.9 gm/dL (12.5-16.0)
[2019-07-20 11:34] LABS: BUN/Creatinine Ratio 35.1 (9.0-21.6); Calcium * 8.7 mg/dL (7.9-10.9); Carbon Dioxide 26.4 mmol/L (24-32.6); Estimated Creat Clear 31.4; Potassium 4.4 mmol/L (3.4-4.6)
[2019-07-20] MEDS: DIGOXIN 0.125 MG TABLET PO SCH (12:29)
--- NOTE | 2019-07-20 12:35 | ANES ---
Anesthesia Procedure Note Procedure Note: ANESTHESIA PROCEDURE NOTE Date of procedure: 07/20/2019. Time of procedure: 1220. Performed by: Ravindra Tony CRNA [facility] Experience Strategy: None . Preprocedure diagnosis: Anemia. Difficult IV access. Post procedure diagnosis: Same. Procedure: IV start Indications: Difficult IV access. Findings: 22-gauge Angiocath IV started in patient's right hand. EBL: Minimal. Fluids: N/A. Specimen: N/A. Post procedure condition: The patient tolerated the procedure well. No complications were noted. Thank you for this consultation Ravindra Tony CRNA
[2019-07-20] MEDS: FUROSEMIDE 10 MG/ML VIAL IV SCH ×2 (15:51→22:01)
[2019-07-20] MEDS ORDERED: DIGOXIN 0.125 MG TABLET PO SCH (21:00)
[2019-07-20] MEDS ORDERED: DILTIAZEM HCL 120 MG CAP.SR.24H PO SCH (21:00)
[2019-07-20] MEDS ORDERED: ROSUVASTATIN CALCIUM 10 MG TABLET PO SCH ×2 (21:00)
[2019-07-20] MEDS ORDERED: BISACODYL 5 MG TABLET.DR PO SCH (21:00)
[2019-07-20 21:29] LABS: Mean Cell Volume 83.9 fl (78-100); Mean Corpuscular Hemoglobin 24.6 pg (27-31); Mean Corpuscular Hgb Conc 29.4 g/dl (32-36); Mean Platelet Volume 10.6 fl (8-12.5); Platelet Count 479 K/mm3 (150-450); Red Cell Distribution Width 17.9 % (11.5-14.0)
[2019-07-20 21:38] LABS: Hematocrit 23.5 % (37.0-47.0); Hemoglobin 6.9 gm/dL (12.5-16.0)
[2019-07-20] MEDS: METOPROLOL TARTRATE 25 MG TABLET PO SCH (22:01)
--- NOTE | 2019-07-20 23:59 | HP ---
Chief Complaint - Chief Complaint Date of Service: 07/20/19 Time of Service: 23:50 Chief Complaint: SOB, fatigue History of Present Illness: 84 yo female with long standing hx of anemia requiring multiple transfusions was admitted to the floor under observation after finding her hemoglobin to be very low. She comes in when she gets tired, pale, and weak Medical History (Last Reviewed 07/20/19 @ 10:15 by Kristin Medrano RN) A-fib Onset Date: Unknown Anemia Onset Date: Unknown Bradycardia Onset Date: ~03/31/19 COPD (chronic obstructive pulmonary disease) Onset Date: Unknown Congestive heart failure (CHF) Onset Date: Unknown Depression Onset Date: Unknown Hypertension Onset Date: Unknown Surgical History: Surgical History (Last Reviewed 07/20/19 @ 10:15 by Kristin Medrano RN) History of carpal tunnel release Onset Date: Unknown bilateral History of colonoscopy Onset Date: Unknown many years ago at [facility] Hx of appendectomy Onset Date: Unknown Hx of tonsillectomy Onset Date: Unknown Family History: Family History (Last Reviewed 07/20/19 @ 10:15 by Kristin Medrano RN) Father , age 59-heart disease Myocardial infarction Heart disease Mother , age 80's-unknown Heart disease Hypertension Social History: (Last Reviewed 07/20/19 @ 10:15 by Kristin Medrano RN) Social History: adopted: No foster care: No alf: No Marital status: / lives independently: Yes lives independently comment: [facility] household members: none number of children: 3 current occupational status: retired Highest education level completed: some college, no degree Service: Yes branch: [employer] Tobacco: Smoking Status: Former smoker Alcohol: alcohol intake: former Substance Use: substance use type: does not use Dietary Habits: caffeine: No Personal Safety: victim of physical abuse: No victim of emotional abuse: No Review Of Systems (GEN) - Review of Systems Generalized/Overall Review: Present: Weakness, Fatigue. Absent: Chills, Fever EENTM: Present: No Symptoms Reported Respiratory: Present: Shortness of Breath. Absent: Cough Cardiac: Present: Edema - bilat LE Abdominal: Present: No Symptoms Reported Genitourinary: Present: No Symptoms Reported Musculoskeletal: Present: No Symptoms Reported Neurological: Present: No Symptoms Reported Skin: Present: No Symptoms Reported Endocrine: Present: No Symptoms Reported Immunizations: IMMUNIZATION HX Immunizations Up to Date Yes History of Influenza Vaccine Yes Hx Pneumococcal Vaccination No Allergies/Adverse Reactions: Allergies Allergy/AdvReac Type Severity Reaction Status Date / Time bupropion HCl Allergy Intermediate Hives Verified 07/20/19 10:16 [From Wellbutrin] Penicillins Allergy Intermediate Hives Verified 07/20/19 10:16 Home Medications: HOME MEDICATIONS Aspirin [Aspirin Enteric Coated] 81 mg PO DAILY 10/06/13 [Last Taken 07/19/19] Potassium Chloride 20 meq PO DAILY 10/06/13 [Last Taken 07/19/19] Digoxin [Digitek] 0.125 mg PO DAILY 01/20/16 [Last Taken 07/19/19] Apixaban [Eliquis] 5 mg PO BID 11/26/18 [Last Taken 07/19/19] Diltiazem HCl [Diltiazem 24Hr ER] 120 mg PO HS 11/26/18 [Last Taken 07/19/19] Atorvastatin Calcium 10 mg PO HS 03/27/19 [Last Taken 07/19/19] Folic Acid 0.4 mg PO DAILY 03/27/19 [Last Taken 07/19/19] Vit A/Vit C/Vit E/Zinc/Copper [Preservision Areds Tablet] 1 ea PO BID 03/27/19 [Last Taken 07/19/19] furosemide 40 mg tablet 40 mg PO DAILY #30 tab 05/19/19 [Last Taken 07/19/19] FLUoxetine HCL [Prozac] 20 mg PO DAILY #30 cap 05/26/19 [Last Taken 07/19/19] calcium carbonate 600 mg calcium (1,500 mg) tablet 1,200 mg PO DAILY 07/11/19 [Last Taken 07/19/19] cholecalciferol (vitamin D3) 1,000 unit capsule 1,000 unit PO DAILY 07/11/19 [Last Taken 07/19/19] metoprolol tartrate 25 mg tablet 25 mg PO BID tab 07/11/19 [Last Taken 07/19/19] omeprazole 20 mg capsule,delayed release 20 mg PO DAILY 07/11/19 [Last Taken 07/19/19] Bisacodyl [Dulcolax] 5 mg PO HS 07/20/19 [Last Taken 07/19/19] Exam - Exam Vital Signs: Vital Signs - Last Taken Temp 36.8 C 07/20/19 23:43 Pulse 88 07/20/19 23:43 Resp 20 07/20/19 23:43 BP 110/41 07/20/19 23:43 Pulse Ox 92 L 07/20/19 23:43 Constitutional: Present: Alert, Oriented x3, Elderly ENT Exam: Present: hearing grossly normal, pharynx normal. Absent: nasal congestion, nasal drainage Eye Exam: bilateral eye: normal inspection, EOMI Neck: Present: non-tender, supple, trachea midline Respiratory: Present: lungs clear, normal breath sounds Cardiovascular/Chest: Present: irregularly irregular, edema Abdomen: Present: Normal bowel sounds, soft, nontender, nondistended Skin Exam: Present: warm/dry, pallor Neurologic: Present: alert, normal mood/affect, oriented x 3 Appearance: Present: appropriate appearance, impaired insight Eye contact: Present: cooperative, good eye contact Thoughts: Present: normal thought pattern, normal mood /affect Diagnostic Studies: Abnormal Lab Results 07/20/19 07/20/19 07/20/19 Range/Units 08:40 09:21 11:20 RBC 2.13 L (4.2-5.4) M/mm3 Hgb 4.9 L* D (12.5-16.0) gm/dL Hct 18.0 L* D (37.0-47.0) % MCH 23.0 L (27-31) pg MCHC 27.2 L (32-36) g/dl RDW 19.9 H (11.5-14.0) % Plt Count 650 H (150-450) K/mm3 BUN 34 H (3-23) mg/dL Est GFR (Non-Af Amer) 58 L (60-130) mL/min BUN/Creatinine Ratio 35.1 H (9.0-21.6) Random Glucose 117 H (70-110) mg/dL Crossmatch See Detail 07/20/19 Range/Units 21:23 RBC 2.80 L (4.2-5.4) M/mm3 Hgb 6.9 L* D (12.5-16.0) gm/dL Hct 23.5 L* D (37.0-47.0) % MCH 24.6 L (27-31) pg MCHC 29.4 L (32-36) g/dl RDW 17.9 H (11.5-14.0) % Plt Count 479 H (150-450) K/mm3 BUN (3-23) mg/dL Est GFR (Non-Af Amer) (60-130) mL/min BUN/Creatinine Ratio (9.0-21.6) Random Glucose (70-110) mg/dL Crossmatch Laboratory Results WBC 8.0 K/mm3 (4.0-10.5) 07/20/19 21: RBC 2.80 M/mm3 (4.2-5.4) L 07/20/19 21:23 Hgb 6.9 gm/dL (12.5-16.0) L* D 07/20/19 21: Hct 23.5 % (37.0-47.0) L* D 07/20/19 21: MCV 83.9 fl (78-100) 07/20/19 21: MCH 24.6 pg (27-31) L 07/20/19 21: MCHC 29.4 g/dl (32-36) L 07/20/19 21:23 RDW 17.9 % (11.5-14.0) H 07/20/19 21:23 Plt Count 479 K/mm3 (150-450) H 07/20/19 21:23 MPV 10.6 fl (8-12.5) 07/20/19 21:23 Sodium 137 mmol/L (132-142) 07/20/19 11:20 Plasma Sodium 137 mmol/L (130-142) 07/20/19 11:20 Potassium 4.4 mmol/L (3.4-4.6) 07/20/19 11:20 Chloride 102 mmol/L (97-106) 07/20/19 11:20 Carbon Dioxide 26.4 mmol/L (24-32.6) 07/20/19 11:20 Anion Gap 13.0 mmol/L (6.8-13.8) 07/20/19 11:20 BUN 34 mg/dL (3-23) H 07/20/19 11:20 Creatinine 0.97 mg/dL (0.4-1.4) 07/20/19 11:20 Est GFR (Non-Af Amer) 58 mL/min (60-130) L 07/20/19 11:20 BUN/Creatinine Ratio 35.1 (9.0-21.6) H 07/20/19 11:20 Random Glucose 117 mg/dL (70-110) H 07/20/19 11:20 Calcium 8.7 mg/dL (7.9-10.9) 07/20/19 11:20 Blood Type A Positive 07/20/19 08:40 Antibody Screen Negative 07/20/19 08:40 Crossmatch See Detail 07/20/19 08:40 Assessment/Plan - Narrative Narrative: Patient has hx of symptomatic anemia. Patient here for transfusion. will repeat H/H as it was very low today once transfusion complete. On tele due to low H/H, VSS and she is afebrile Regular diet. No dvt ppx at this time due to short stay Restart chronic medications Will check Iron studies. Will discuss palliative care with family in the morning. likely home tomorrow. Nurse to call with questions or concerns. - Assessment/Plan (1) Symptomatic anemia Problem: Acute (2) Chronic anemia Problem: Chronic (3) A-fib Problem: Chronic (4) Congestive heart failure Problem: Chronic Qualifiers: (5) Hypoxia Problem: Acute
[2019-07-21] MEDS ORDERED: PANTOPRAZOLE SODIUM 20 MG TABLET.DR PO SCH (07:00)
[2019-07-21 07:09] LABS: Hematocrit 26.4 % (37.0-47.0); Mean Cell Volume 85.2 fl (78-100); Mean Corpuscular Hemoglobin 25.8 pg (27-31); Mean Corpuscular Hgb Conc 30.3 g/dl (32-36); Mean Platelet Volume 11.4 fl (8-12.5); Neutrophil # 6.5 K/mm3 (1.3-6.0); Neutrophil % 73.7 % (42-75.0); Platelet Count 436 K/mm3 (150-450); Red Cell Distribution Width 17.2 % (11.5-14.0); White Blood Count 8.8 K/mm3 (4.0-10.5)
[2019-07-21 07:30] LABS: Iron 29 mcg/dL (35-120); Transferrin Sat. (% Sat.) 8 % (15-55)
[2019-07-21] MEDS ORDERED: FOLIC ACID 0.4 MG TABLET PO SCH (09:00)
[2019-07-21] MEDS ORDERED: FLUoxetine HCL 20 MG CAPSULE PO SCH (09:00)
[2019-07-21] MEDS ORDERED: CHOLECALCIFEROL 1,000 UNIT CAPSULE PO SCH (09:00)
[2019-07-21] MEDS: DIGOXIN 0.125 MG TABLET PO SCH (10:24)
[2019-07-21] MEDS: METOPROLOL TARTRATE 25 MG TABLET PO SCH (10:24)
[2019-07-21] MEDS: FUROSEMIDE 10 MG/ML VIAL IV SCH (12:17)
--- NOTE | 2019-07-21 18:08 | DS ---
(1) Symptomatic anemia Problem: Acute (2) Chronic anemia Problem: Chronic (3) A-fib Problem: Chronic (4) Congestive heart failure Problem: Chronic Qualifiers: (5) Hypoxia Problem: Acute Date of Discharge:: 07/21/19 Hospital Course: 84-year-old female history of chronic anemia, unknown cause. Unable to tolerate intervention due to age and comorbidities. Patient has been getting transfusions for last few months every week or 2 due to symptoms of shortness of breath, fatigue, weakness, pallor. Patient came into the hospital yesterday with a hemoglobin of 4.9, she was admitted under observation and transfused 3 units. Repeat hemoglobin this morning was 8.0. While here her vital signs been stable and she has been afebrile. Patient has been short of breath at times though this is normal for her as she does have COPD. She has oxygen that she wears at home. She is requiring 1 to 2 L at times to maintain sats around 92 which is about at her baseline. Today discussed in detail about what the plan is going forward and it is likely patient is leaning towards palliative versus hospice care but wishes to have time to think about this which I think is completely appropriate. We will have her follow-up with me in 1 week to discuss these options otherwise will order home health for her. Patient does require this as she is very symptomatic and has issues with taking her medications and caring for herself. Nicole Chong is confined to home due to chronic symptomatic anemia, COPD, CHF. The need for retirement is lack of understanding of her chronic medical conditions and monitoring of her vital signs/O2 sats. Patient requires PT and OT due to severe deconditioning and weakness likely from her chronic morbidities including symptomatic anemia, COPD, CHF. The need for home health care skilled services is directly related to the time spent [id number] with this patient. Majority of her medications and vitamins were discontinued at this admission. Procedures Performed: none Results and Findings: Lab Pending Results 07/20/19 08:40: Blood Type A Positive, Antibody Screen Negative, Crossmatch See Detail 07/20/19 09:21: WBC 9.9, RBC 2.13 L, Hgb 4.9 L* D, Hct 18.0 L* D, MCV 84.5, MCH 23.0 L, MCHC 27.2 L, RDW 19.9 H, Plt Count 650 H, MPV 11.7 07/20/19 11:20: Sodium 137, Plasma Sodium 137, Potassium 4.4, Chloride 102, Carbon Dioxide 26.4, Anion Gap 13.0, BUN 34 H, Creatinine 0.97, Est GFR (Non-Af Amer) 58 L, BUN/Creatinine Ratio 35.1 H, Random Glucose 117 H, Calcium 8.7 07/20/19 21:23: WBC 8.0, RBC 2.80 L, Hgb 6.9 L* D, Hct 23.5 L* D, MCV 83.9, MCH 24.6 L, MCHC 29.4 L, RDW 17.9 H, Plt Count 479 H, MPV 10.6 07/21/19 07:02: WBC 8.8, RBC 3.10 L, Hgb 8.0 L, Hct 26.4 L, MCV 85.2, MCH 25.8 L, MCHC 30.3 L, RDW 17.2 H, Plt Count 436, MPV 11.4, Immature Gran % (Auto) 0.30, Immature Gran # (Auto) 0.03, Neutrophils % 73.7, Lymphocytes % 10.8 L, Monocytes % 12.7 H, Eosinophils % 2.2, Basophils % 0.3, Nucleated RBC % 0.0, Neutrophils # 6.5 H, Lymphocytes # 0.95 L, Monocytes # 1.1 H, Eosinophils # 0.2, Absolute Basophils 0.0 07/21/19 07:02: Iron 29 L, TIBC 356, Transferrin % Sat 8 L Discharge Location: Home Disposition: Home Health Service Home Health Agency: [facility] Home Health Condition: Critical Face to Face Encounter completed per CMS Guidelines: Yes Discharge Activity: Activity as tolerated Discharge Diet: General/regular food Referrals: Colton Hernandez DO [Primary Care Provider] - One Week Additional Patient Instructions (free text): [facility] HH new at discharge, please call and fax them discharge orders. Complete Home Medications List: Complete Home Medication List: Digoxin [Digitek] 0.125 mg PO DAILY 01/20/16 Diltiazem HCl [Diltiazem 24Hr ER] 120 mg PO HS 11/26/18 furosemide 40 mg tablet 40 mg PO DAILY #30 tab 05/19/19 FLUoxetine HCL [Prozac] 20 mg PO DAILY #30 cap 05/26/19 metoprolol tartrate 25 mg tablet 25 mg PO BID tab 07/11/19 omeprazole 20 mg capsule,delayed release 20 mg PO DAILY 07/11/19 Bisacodyl [Dulcolax] 5 mg PO HS 07/20/19
[2019-07-21 18:31] VITALS: BP 108/44
== END 2019-07-21 18:30 | disposition home health service (06) ==
LOC: MS 08:36 → LAB 08:36
PROVIDERS: ADMIT Family Medicine; ATTEND Family Medicine
CPT/HCPCS: 36415; 36430; 80048; 83540; 83550; 85025; 85027; 86850; 96374; 96375; G0378; G0379; P9016